=== PATIENT | female | born 1975 | race Caucasian/White ===

== ENCOUNTER 2020-05-26 11:35 | Outpatient (REF) | payer OTHER, SELFPAY ==
[2020-05-26 11:55] LABS: COVID-19 Test Negative (Negative)
== END 2020-05-26 11:36 | disposition home or self-care (01) ==
LOC: HO.LAB 11:35
PROVIDERS: Visit Provider Internal Medicine
DX: Z20.828 Contact with and (suspected) exposure to other viral communicable diseases (principal)
CPT/HCPCS: 87635

== ENCOUNTER 2020-07-07 08:24 | Outpatient (REF) | payer OTHER, SELFPAY ==
[2020-07-07 09:00] LABS: COVID-19 Test Negative (Negative); IDNOW Serial# 55D5AD1C
== END 2020-07-07 08:25 | disposition home or self-care (01) ==
LOC: HO.EMPCOV 08:24
PROVIDERS: Visit Provider Internal Medicine
DX: Z20.828 Contact with and (suspected) exposure to other viral communicable diseases (principal)
CPT/HCPCS: 87635; C9803

== ENCOUNTER 2020-07-12 08:44 | Outpatient (REF) | payer OTHER, SELFPAY ==
[2020-07-12 09:38] LABS: COVID-19 Test Negative (Negative); IDNOW Serial# 9DD0AD1C
== END 2020-07-12 08:45 | disposition home or self-care (01) ==
LOC: HO.EMPCOV 08:44
PROVIDERS: Visit Provider Internal Medicine
DX: Z20.828 Contact with and (suspected) exposure to other viral communicable diseases (principal)
CPT/HCPCS: 87635; C9803

== ENCOUNTER 2020-09-10 09:15 | Outpatient (REF) | payer OTHER, SELFPAY ==
[2020-09-10 10:51] LABS: Cholesterol 143 mg/dL
== END 2020-09-10 09:16 | disposition home or self-care (01) ==
LOC: HO.LNC 09:15
PROVIDERS: Visit Provider Pathology Anatomic Pathology & Clinical Pathology
DX: Z13.89 Encounter for screening for other disorder (principal)
CPT/HCPCS: 36415; 82465

== ENCOUNTER 2020-11-16 08:58 | Outpatient (REF) | payer OTHER, SELFPAY ==
--- NOTE | ~2020-11-16 | MM_ITS ---
EXAMINATION: MM SCREENING DIGITAL BREAST TOMOSYNTHESIS, BILATERAL CLINICAL INFORMATION: Screening. Asymptomatic. The lifetime risk of breast cancer based on the Tyrer-Cuzick Model is 7%. COMPARISON: Mammography: 09/02/2019, 08/27/2018, 07/31/2017 TECHNIQUE: Digital breast tomosynthesis is performed in both the craniocaudal and mediolateral oblique views along with computer-aided detection (CAD). Synthesized 2D images are generated from the tomosynthesis. FINDINGS: The breasts are heterogeneously dense, which may obscure small masses (ACR BI-RADS breast composition Category c). Parenchymal pattern is similar to prior exams. There is no developing density or interval mass or architectural abnormality. The axilla and skin contours are unremarkable. Again, there are scattered bilateral isolated and grouped round calcifications in each breast. No significant changes. MM/MM tomosynthesis screening BI IMPRESSION: No mammographic evidence of malignancy. ASSESSMENT: BI-RADS 2: Benign RECOMMENDATION: Routine annual mammography screening. This patient's information was entered into a reminder system with a target due date for their next mammogram.
== END 2020-11-16 08:59 | disposition home or self-care (01) ==
LOC: HO.MAMMO 08:58
PROVIDERS: Visit Provider Physician Assistant
DX: Z12.31 Encounter for screening mammogram for malignant neoplasm of breast (principal)
CPT/HCPCS: 77063; 77067

== ENCOUNTER 2020-12-06 10:59 | Outpatient (REF) | payer OTHER, SELFPAY ==
[2020-12-06 11:51] LABS: COVID-19 Test Negative (Negative); IDNOW Serial# 55D5AD1C
== END 2020-12-06 11:00 | disposition home or self-care (01) ==
LOC: HO.EMPCOV 10:59
PROVIDERS: Visit Provider Internal Medicine
DX: Z20.822 Contact with and (suspected) exposure to COVID-19 (principal)
CPT/HCPCS: 36415; 87635; C9803

== ENCOUNTER 2021-05-25 12:04 | Outpatient (REF) | payer OTHER, SELFPAY ==
--- NOTE | ~2021-05-25 | US_ITS ---
EXAMINATION: US PELVIS CLINICAL INFORMATION: Pelvic pain COMPARISON: Previous pelvic ultrasound most recent July 2016 TECHNIQUE: Ultrasound of the pelvis is performed using both transabdominal and transvaginal transducers along with Doppler. Transvaginal imaging is performed due to inadequate visualization transabdominally. FINDINGS: The uterus has been removed. The right ovary measures 2.9 x 2.2 x 2 cm. There is a 1.6 cm complex right ovarian cyst with slightly thickened irregular wall likely representing a resolving physiologic cyst. Arterial and venous flow is documented to the right ovary. Left ovary is normal-appearing and measures 1.7 x 1.7 x 1.3 cm. There is no fluid in the pelvis. US/US pelvic and transvaginal IMPRESSION: Post hysterectomy. Small complex right ovarian cyst probably representing a physiologic cyst.
[2021-05-25 13:53] LABS: MANUAL DIFF FLAG NO
[2021-05-25 14:01] LABS: Basophils Percent Auto 0.2 % (0-2); Eosinophils Absolute Auto 0.2 X10*3/uL (0.0-0.4); Eosinophils Percent Auto 1.4 % (0-4); Imm Gran Abs Auto 0.03 X10*3/uL (0.00-0.03); Imm Gran Pct Auto 0.3 % (0.0-0.4); Lymphocytes Absolute Auto 3.6 X10*3/uL (1.2-4.9); Lymphocytes Percent Auto 31.4 % (20-40); Mean Corpuscular HGB Conc 34.1 g/dl (31.0-35.0); Mean Corpuscular Volume 87.8 fL (80-98); Mean Platelet Volume 9.1 fL (9.4-12.3); Monocytes Absolute Auto 0.6 X10*3/uL (0.1-1.2); Monocytes Percent Auto 5.3 % (2-11); Neutrophils Absolute Auto 7.1 X10*3/uL (2.0-8.3); Neutrophils Percent Auto 61.4 % (45-73); Platelet Count 284 X10*3/uL (160-400); Red Blood Count 4.67 X10*6/uL (4.20-5.50); Red Cell Distribution Width 12.3 % (11.0-16.0); White Blood Count 11.5 X10*3/uL (4.8-10.8)
[2021-05-25 14:38] LABS: Alanine Aminotransferase 11 U/L (0-31); Albumin Level 4.5 g/dL (3.5-5.0); Alkaline Phosphatase 111 U/L (39-117); Anion Gap 13 (12-20); Aspartate Amino Transferase 11 U/L (5-31); Bilirubin Total 0.3 mg/dL (0.0-1.0); Blood Urea Nitrogen 11 mg/dL (9-16); C Reactive Protein 1.44 mg/dL (< or = 0.50); Calcium 9.9 mg/dL (8.4-10.2); Carbon Dioxide 23 mmol/L (22-29); Chloride 105 mmol/L (96-108); Estimated Glomerular Filt Rate > 60; Glucose Random 117 mg/dL (60-115); Potassium 4.4 mmol/L (3.3-5.1); Sodium 137 mmol/L (135-145); Total Protein 7.3 g/dL (6.5-8.0)
[2021-05-25 14:47] LABS: Appearance Urine HAZY; Color Urine YELLOW; Glucose Urine UA NEG (NEG); Leukocyte Esterase Urine NEG (NEG); Nitrite Urine NEG (NEG); Specific Gravity - Urine 1.025 (1.005-1.025); UACC Culture Trigger NO; Urine Blood TRACE (NEG); Urine Ketones NEG (NEG); Urine Protein NEG (NEG-TRACE)
[2021-05-25 15:11] LABS: RBC Urine 0-2 /HPF (0); WBC Urine 0 /HPF (0-4)
[2021-05-25 15:12] LABS: Squamous Epithelial Cell Urine 1+ /LPF
[2021-05-25 15:14] LABS: Bacteria Urine TRACE /LPF; Mucus Urine TRACE /LPF
== END 2021-05-25 12:05 | disposition home or self-care (01) ==
LOC: HO.US 12:04
PROVIDERS: Visit Provider Internal Medicine
DX: R10.9 Unspecified abdominal pain (principal)
CPT/HCPCS: 36415; 76830; 76856; 80053; 81001; 85025; 86140

== ENCOUNTER 2021-07-13 13:19 | Outpatient (REF) | payer OTHER, SELFPAY ==
[2021-07-13 15:08] LABS: Influenza A PCR NEGATIVE (Negative); Influenza B PCR NEGATIVE (Negative); Resp Syncy Virus RNA Qual PCR NEGATIVE (Negative); SARS COV2 PCR INHOUSE NEGATIVE (Negative)
== END 2021-07-13 13:20 | disposition home or self-care (01) ==
LOC: HO.LAB 13:19
PROVIDERS: Visit Provider Physician Assistant
DX: Z20.822 Contact with and (suspected) exposure to COVID-19 (principal)
CPT/HCPCS: 0241U; 36415

== ENCOUNTER 2021-11-21 15:15 | Outpatient (REF) | payer OTHER, SELFPAY ==
--- NOTE | ~2021-11-21 | MM_ITS ---
EXAMINATION: MM SCREENING DIGITAL BREAST TOMOSYNTHESIS, BILATERAL CLINICAL INFORMATION: Screening. Asymptomatic. The lifetime risk of breast cancer based on the Tyrer-Cuzick Model is 5%. COMPARISON: Mammography: 11/16/2020, 09/02/2019, 08/27/2018 TECHNIQUE: Digital breast tomosynthesis is performed in both the craniocaudal and mediolateral oblique views along with computer-aided detection (CAD). Synthesized 2D images are generated from the tomosynthesis. FINDINGS: The breasts are heterogeneously dense, which may obscure small masses (ACR BI-RADS breast composition Category c). Parenchymal distribution is similar to prior studies and there is no developing density or interval mass or architectural abnormality. The axilla and skin contours are unremarkable. There are scattered bilateral punctate calcifications again seen. Left breast calcifications are without significant change. The right breast has focal grouped calcifications 5:00 position 8 cm from nipple which are more conspicuous, possibly increased in number. Some of these appear are coarse. Patient will be recalled for additional imaging to further characterize with magnification views. MM/MM tomosynthesis screening BI IMPRESSION: Right: Grouped calcifications mid 5:00 position possibly increased. Left: No significant changes from prior study. ASSESSMENT: BI-RADS 0: Incomplete - Need Additional Imaging Evaluation RECOMMENDATION: 1. Additional views of the right breast (magnification CC, magnification LM). 2. Radiology department staff will contact the patient for additional imaging. This patient's information was entered into a reminder system with a target due date for their next mammogram.
== END 2021-11-21 15:16 | disposition home or self-care (01) ==
LOC: HO.MAMMO 15:15
PROVIDERS: Visit Provider Internal Medicine
DX: Z12.31 Encounter for screening mammogram for malignant neoplasm of breast (principal)
CPT/HCPCS: 77063; 77067

== ENCOUNTER 2021-11-25 10:18 | Outpatient (REF) | payer OTHER, SELFPAY ==
--- NOTE | ~2021-11-25 | MM_ITS ---
EXAMINATION: MM DIAGNOSTIC DIGITAL MAMMOGRAPHY, RIGHT CLINICAL INFORMATION: Recall from screening for focal grouped calcifications 5:00 position more conspicuous. Prior history reduction mammoplasty, 2009. COMPARISON: Mammography: 11/21/2021, 11/16/2020, 09/02/2019, 08/27/2018 (diagnostic, BI-RADS 2). TECHNIQUE: Digital mammography is performed in the following views: Magnification CC, magnification ML x2. FINDINGS: The breasts are heterogeneously dense, which may obscure small masses (ACR BI-RADS breast composition Category c). The additional magnification views show the grouped calcifications mid 5:00 position, increased in number from magnification views 08/27/2018. The calcifications are relatively coarse and circumferential arrangement. There are other smaller grouped calcifications of similar morphology in the right breast. These are probably benign and possibly sequela from the prior reduction mammoplasty. Management plan is for short interval follow-up diagnostic right mammography in 6 months. Results are discussed with the patient at time of visit. MM/MM added views RT IMPRESSION: Probable benign calcifications mid 5:00 position similar in morphology to other smaller groups right breast, possibly sequela from prior reduction mammoplasty. ASSESSMENT: BI-RADS 3: Probably Benign RECOMMENDATION: Diagnostic right mammography in 6 months. This patient's information was entered into a reminder system with a target due date for their next mammogram.
== END 2021-11-25 10:19 | disposition home or self-care (01) ==
LOC: HO.MAMMO 10:18
PROVIDERS: Visit Provider Internal Medicine
DX: R92.1 Mammographic calcification found on diagnostic imaging of breast (principal)
CPT/HCPCS: 77065

== ENCOUNTER 2022-05-30 14:17 | Outpatient (REF) | payer OTHER, SELFPAY ==
--- NOTE | ~2022-05-30 | MM_ITS ---
EXAMINATION: MM DIAGNOSTIC DIGITAL BREAST TOMOSYNTHESIS, RIGHT CLINICAL INFORMATION: Short interval six-month follow-up probable benign calcifications 5:00 right breast, suspect sequela from remote reduction mammoplasty. TC score 5%. COMPARISON: Mammography: 11/25/2021, 11/21/2021 (BI-RADS 0), 11/16/2020, 09/02/2019, 08/27/2018 TECHNIQUE: Digital breast tomosynthesis is performed in both the craniocaudal and mediolateral oblique views along with computer-aided detection (CAD). Synthesized 2D images are generated from the tomosynthesis. Additional magnification right CC and magnification right ML views are obtained. FINDINGS: The breasts are heterogeneously dense, which may obscure small masses (ACR BI-RADS breast composition Category c). Parenchymal pattern is similar to prior exams and there is no interval mass or developing density or architectural abnormality. There are numerous old calcifications throughout the right breast, the group for follow-up have similar characteristics and likely related to the reduction mammoplasty. No increasing calcifications from prior diagnostic exam. Calcifications will be reassessed again at time of annual bilateral mammography, due in 6 months. Results are provided to the patient at time of visit by the technologist. MM/MM tomosynthesis diagnostic RT IMPRESSION: Right breast calcifications for follow-up are stable, similar to other calcifications in the right breast. ASSESSMENT: BI-RADS 3: Probably Benign RECOMMENDATION: Diagnostic mammography at time of annual bilateral exam, due in 6 months. This patient's information was entered into a reminder system with a target due date for their next mammogram.
== END 2022-05-30 14:18 | disposition home or self-care (01) ==
LOC: HO.MAMMO 14:17
PROVIDERS: Visit Provider Internal Medicine
DX: R92.1 Mammographic calcification found on diagnostic imaging of breast (principal)
CPT/HCPCS: 77061; 77065

== ENCOUNTER 2022-11-07 07:31 | Outpatient (REF) | payer OTHER, SELFPAY ==
[2022-11-10 06:34] LABS: TS Negative Control Passed; TS Panel A 1; TS Panel B 0; TS Positive Control Passed; TSpotTB Negative (Negative)
== END 2022-11-07 07:32 | disposition home or self-care (01) ==
LOC: HO.LAB 07:31
PROVIDERS: Visit Provider Emergency Medicine
DX: A15.9 Respiratory tuberculosis unspecified (principal)
CPT/HCPCS: 36415; 86481

== ENCOUNTER 2022-11-30 12:36 | Outpatient (REF) | payer OTHER, SELFPAY ==
--- NOTE | ~2022-11-30 | MM_ITS ---
EXAMINATION: MM DIAGNOSTIC DIGITAL BREAST TOMOSYNTHESIS, BILATERAL CLINICAL INFORMATION: Six-month follow up right breast calcifications. Yearly screening left breast study. COMPARISON: Mammography: 05/30/2022 and studies dating back to 07/25/2016. TECHNIQUE: Digital breast tomosynthesis is performed in both the craniocaudal and mediolateral oblique views along with computer-aided detection (CAD). Synthesized 2D images are generated from the tomosynthesis. Additional spot magnification views of the right breast in craniocaudal and 90-degree mediolateral views performed. FINDINGS: The breasts are extremely dense, which lowers the sensitivity of mammography (ACR BI-RADS breast composition category D). There are no new significant masses, abnormal calcifications, or other abnormalities. There is essentially stability of grouped and scattered calcifications throughout both breasts including the one being followed about the inferior medial aspect of the right breast. One year followup bilateral mammography with right breast magnification views at that time recommended. Results are provided to the patient at time of visit by the technologist. MM/MM tomosynthesis diagnostic BI IMPRESSION: There are no significant changes from prior study. ASSESSMENT: BI-RADS 3: Probably benign. RECOMMENDATION: Diagnostic mammography at time of next annual exam, due in 12 months. This patient's information was entered into a reminder system with a target due date for their next mammogram.
== END 2022-11-30 12:37 | disposition home or self-care (01) ==
LOC: HO.MAMMO 12:36
PROVIDERS: PCP Internal Medicine; Visit Provider Internal Medicine
DX: R92.1 Mammographic calcification found on diagnostic imaging of breast (principal)
CPT/HCPCS: 77062; 77066

== ENCOUNTER 2022-12-20 09:09 | Outpatient (REF) | payer OTHER, SELFPAY ==
--- NOTE | ~2022-12-20 | FL_ITS ---
PROCEDURE: FL BARIUM SWALLOW CLINICAL INFORMATION: Dysphagia. COMPARISON: None available. TECHNIQUE: Barium swallow examination is performed using fluoroscopic evaluation in addition to multiple fluoroscopic spot views. The patient is imaged both upright and prone and using both thick and thin sulfate along with effervescent granules. Fluoroscopy time: 2.3 minutes DAP: 16.422 Gy-cm2 Images: 53 FINDINGS: Following oral administration of thick barium and barium-coated turkey and barium tablet there is normal propagation of bolus from the oral cavity through the pharynx, esophagus into stomach without any evidence of obstruction, narrowing. No laryngeal penetration or aspiration seen. There are degenerative disc changes at C5-C6 and C6-C7 disc levels with moderate ventral spondylosis at the C6-C7 disc level indenting the posterior esophageal pharyngeal wall but no obstruction seen. On placing patient prone and oral administration of thin barium there is good distention of the esophagus without any filling defect. There is a small sliding hiatal hernia. FL/FL barium swallow IMPRESSION: Indentation of posterior cervical esophageal wall from ventral spondylosis C6-C7 disc level but no obstruction. Small sliding hiatal hernia.
== END 2022-12-20 09:10 | disposition home or self-care (01) ==
LOC: HO.XRAY 09:09
PROVIDERS: PCP Internal Medicine; Visit Provider Internal Medicine Gastroenterology
DX: R13.10 Dysphagia, unspecified (principal)
CPT/HCPCS: 74220

== ENCOUNTER → 2023-03-09 10:12 | Outpatient (BNVA) | payer SELFPAY | PROVIDERS: PCP Internal Medicine | DX: Z04.9 Encounter for examination and observation for unspecified reason (principal) ==

== ENCOUNTER 2023-07-16 09:01 | Outpatient (AMB) | payer OTHER, SELFPAY ==
--- NOTE | 2023-07-16 09:02 | A.OFFVIS_ITS ---
Intake Intake Visit Reasons: f/u BA Swallow Intake Note: Isabel presents as a video call. CC: She states that she had a BA swallow, she feels like she is going to choke and it happens with meats in general - big steak! She states her gall bladder is there but it does not work. If she does not have a BM it is an issue. Life Skills Consultant Required: No Allergies No Known Allergies Allergy (Verified 07/16/23 09:03) HPI f/u BA Swallow HPI Details 47 yr old patient being called for asses sment for dysphagia and choking Has issues with choking and dysphagia for years can happen with thick meats, steak, has occ heartburn she says her GB does not work and she has diarrhea she denies melena or diarrhea her weight is stable she never had egd or colonoscopy Ba swallow: Indentation of posterior cervical esophageal wall from ventral spondylosis C6-C7 disc level but no obstruction. Small sliding hiatal hernia. PMH: goiter PSH: breast reduction, hysterectomy, tubal SH: smoker, no alcohol, no recreational drugs FH: father has colon issues, just ROS Constitutional : No Weight loss, No Fever, No Chills ENT/Mouth : No sore throat, No Rhinorrhea Eyes: No Swelling, No Redness Cardiovascular : No Chest Pain, No SOB, No Edema Respiratory : No Cough, No Sputum, No Wheezing Gastrointestinal : see HPI Genitourinary : NO Dysuria, No Urinary Frequency, No Hematuria, No Urgency Musculoskeletal : No joint pain, No Myalgias, No Joint Swelling Skin : No Skin Lesions, No rash Neuro : No Weakness, No Numbness, No Dizziness, No Headache Psych : No Anxiety/Panic, No Depression Heme/Lymph: No Bruising, No Lymphadenopathy Endocrine : No Polyuria, No Polydipsia All other systems reviewed and are negative. EXAM: GENERAL: The patient is well developed and nontoxic. A/P: 1/ Choking, dysphagia to meats ddx: eoe. shcatzki ring, GERD related, dysmotility 2/ diarrhea, maybe realted to 1/, gastri tis, infectious (works in health care), colitis Plan: 1/ EGD and colo for further assessment, riaz and janna sent [facility] Medical History (Updated 07/16/23 @ 09:30 by Salas Mota MD) Esophageal stricture GERD (gastroesophageal reflux disease) Surgical History (Updated 10/19/22 @ 14:54 by Funmilayo Patel RN) Hx of tubal ligation H/O bilateral breast reduction surgery History of hysterectomy Social History Are you a primary primary care sales representative to a significant other at home: No Do you presently have visiting nurse or other home services: No Patient Tobacco Use Status: Current everyday Tobacco user Tobacco use type: Cigarette Cigarettes Per Day: 4 Assessment & Plan Assessment & Plan (1) Choking due to food (regurgitated): Code(s): T17.320A - Food in larynx causing asphyxiation, initial encounter; W44.F3XA - Food entering into or through a natural orifice, initial encounter Plan: A/P: 1/ Choking, dysphagia to meats ddx: eoe. shcatzki ring, GERD related, dysmotility 2/ diarrhea, maybe realted to 1/, gastritis, infectious (works in health care), colitis Plan: 1/ EGD and colo for further assessment, suprep and zofran sent (2) Diarrhea: Code(s): R19.7 - Diarrhea, unspecified Plan: A/P: 1/ Choking, dysphagia to meats ddx: eoe. shcatzki ring, GERD related, dysmotility 2/ diarrhea, maybe realted to 1/, gastritis, infectious (works in health care), colitis Plan: 1/ EGD and colo for further assessment, suprep and zofran sent Medications: New sodium,potassium,mag sulfates 17.5-3.13-1.6 gram (Suprep Bowel Prep Kit) DILUTE; drink 1/2 at 6-8 pm and half at 11 PM- 1AM 354 mL 0RF ondansetron can take with colon prep for colonoscopy 4 mg PO Q8H PRN 7 tabs 0RF nausea and vomiting Telehealth Telehealth Location of provider rendering services: practice address Location of patient: address on file Patient Identification confirmed using: Name, : Yes Telehealth method: video Patient verbally consented to treatment: Yes Patient verbally consented to billing insurance company: Yes Patient informed of any privacy concerns related to visit: Yes Minutes spent on Phone/Video with Pt.: 11 Coding Level of Care Code Tele New Pt Level 4 (53661) Diagnoses Choking due to food (regurgitated) T17.320A; W44.F3XA Diarrhea R19.7
== END 2023-07-16 09:42 | disposition home or self-care (01) ==
LOC: HO.HGI 09:01
PROVIDERS: PCP Internal Medicine; Visit Provider Internal Medicine Gastroenterology
DX: T17.320A Food in larynx causing asphyxiation, initial encounter (principal); W44.F3XA Food entering into or through a natural orifice, initial encounter; R19.7 Diarrhea, unspecified
CPT/HCPCS: 99204

== ENCOUNTER → 2023-07-16 09:01 | Outpatient (BNVA) | payer OTHER, SELFPAY | PROVIDERS: PCP Internal Medicine; Visit Provider Internal Medicine Gastroenterology ==

== ENCOUNTER 2023-08-16 09:05 | Day surgery (SDC) | payer OTHER, SELFPAY ==
--- NOTE | 2023-08-15 11:52 | P.CONAN_ITS ---
HPI - Anesthesia Eval Consult details Narrative: 47yo F for Upper Endoscopy and Colonoscopy PMFSH Active Problems Active Problems: All Active Problems (Updated 07/16/23 @ 09:30 by Salas Mota MD) Diarrhea (Acute) Choking due to food (regurgitated) (Acute) Past Medical History Medical History (Updated 07/16/23 @ 09:30 by Salas Mota MD) Esophageal stricture GERD (gastroesophageal reflux disease) Surgical History Surgical History (Updated 10/19/22 @ 14:54 by Funmilayo Patel RN) Hx of tubal ligation H/O bilateral breast reduction surgery History of hysterectomy Social History Social History Are you a primary intensive care unit registered nurse to a significant other at home: No Do you presently have visiting nurse or other home services: No Patient Tobacco Use Status: Current everyday Tobacco user Tobacco use type: Cigarette Cigarettes Per Day: 4 Meds Allergies Allergy/AdvReac Type Severity Reaction Status Date / Time No Known Allergies Allergy Verified 07/16/23 09:03 Home Medications Medication Instructions Recorded Confirmed Last Taken Type Protonix 40 PO DAILY PRN Acid Reflux 10/19/22 10/19/22 08/16/22 History cholecalciferol (vitamin D3) 50 50 mcg PO DAILY 07/16/23 08/01/23 History mcg (2,000 unit) tablet (Vitamin D3) omega-3 acid ethyl esters 1 gram 2 cap PO BID 07/16/23 08/01/23 History capsule Assessment and Plan Assessment Anesthesia Assessment: Chart Reviewed
[2023-08-16 09:21] VITALS: BMI 30.7
[2023-08-16 09:26] VITALS: BP 128/91; PULSE 87; RESP 18; TEMP 36.6; O2SAT 97
--- NOTE | 2023-08-16 09:51 | HO.ANESPROP2 ---
[facility] Active Problems Active Problems: All Active Problems (Updated 07/16/23 @ 09:30 by Salas Mota MD) Diarrhea (Acute) Choking due to food (regurgitated) (Acute) Past Medical History Medical History (Updated 07/16/23 @ 09:30 by Salas Mota MD) Esophageal stricture GERD (gastroesophageal reflux disease) Family History Family history of problems with anesthesia: No Surgical History Surgical History (Updated 10/19/22 @ 14:54 by Funmilayo Patel RN) Hx of tubal ligation H/O bilateral breast reduction surgery History of hysterectomy History of Problems with Anesthesia: No Social History Social History Are you a primary personal care service provider to a significant other at home: No Do you presently have visiting nurse or other home services: No Patient Tobacco Use Status: Current everyday Tobacco user Tobacco use type: Cigarette Cigarettes Per Day: 4 Are you DNR?: No Advance Directives: No Advance Directives Information Provided: Yes Nutrition Risks: No Nutritional Risk Patient : No Meds Allergies Allergy/AdvReac Type Severity Reaction Status Date / Time No Known Allergies Allergy Verified 07/16/23 09:03 Active Medications: Current Medications Lactated Ringer's (Lr) 1,000 mls @ 100 mls/hr IVCONT .Q10H TERESA Last Admin: 08/16/23 09:35 Dose: 100 mls/hr Ondansetron HCl (Ondansetron Hcl 4 Mg/2 Ml Vial) 4 mg IVPUSH ONCE PRN PRN Reason: Nausea and Vomiting Home Medications Medication Instructions Recorded Confirmed Last Taken Type Protonix 40 PO DAILY PRN Acid Reflux 10/19/22 10/19/22 08/16/22 History cholecalciferol (vitamin D3) 50 50 mcg PO DAILY 07/16/23 08/01/23 History mcg (2,000 unit) tablet (Vitamin D3) omega-3 acid ethyl esters 1 gram 2 cap PO BID 07/16/23 08/01/23 History capsule Exam Height,Weight and Vital Signs: Height 5 ft 6 in Weight 86.183 kg Last Vital Signs Temp 97.9 F 08/16/23 09:26 Pulse 87 08/16/23 09:26 Resp 18 08/16/23 09:26 BP 128/91 H 08/16/23 09:26 Pulse Ox 97 08/16/23 09:26 O2 Del Method Room Air 08/16/23 09:26 Airway Mallampati Class: I TM Dist: >3cm Neck ROM: Full Loose/Missing/Broken Teeth: No Heart: rrr Lungs: clear Assessment and Plan Final Anesthetic Review Family History of Problems with Anesthesia: No History of Problems with Anesthesia: No NPO: Yes ASA Class: II Final Preanesthetic Review: No Changes in Pt Med Stat, Meds/Allgs Chart Reviewed, Consent Obtained/Reviewed and Anes Risks/Benef Reviewed Procedure Risk: Low Anesthetic Plan Anesthetic Plan: MAC: Disposition: Standard PACU
--- NOTE | 2023-08-16 10:07 | MHC.SHP ---
Pre-Procedural Eval Section A Date of Service: 08/16/23 Section B Chief Complaint: Food entering into or through a natural orifice Details of Present Illness: dysphagia and colon screening Relevant Family History (Specify if Yes): No Relevant Social History: Tobacco Use Present Medications: see Short Stay Collaborative assessment Medical History: Significant History (Esophageal stricture GERD (gastroesophageal reflux disease)) History of Previous Operations: Relevant previous surgery/procedure and date(s) ( Hx of tubal ligation H/O bilateral breast reduction surgery History of hysterectomy) Allergies: Allergies Allergy/AdvReac Type Severity Reaction Status Date / Time No Known Allergies Allergy Verified 07/16/23 09:03 Review of Systems Sugical H&P ROS: Negative: Constitution, Cardiovascular, Respiratory, Neurological, Psychiatric, Hem-Onc, Allergic/Immunologic, Gastrointestinal, Genitourinary, Musculoskeletal, Integumentary, Endocrine and Eyes/Ears/Nose/Throat Exam Surgical H&P Exam: Normal: HEENT, Normal: Heart, Normal: Lungs, Normal: Extremities, Normal: Abdomen, Normal: Skin and Normal: Neurological Plan Diagnosis/Plan: Unchanged I have reviewed the history and physical and performed a pertinent physical examination on my patient. No changes have occurred unless specified. Time Spent With Patient Time: Total time managing care of this patient today ____ minutes.
--- NOTE | 2023-08-16 10:15 | W.PM.OPN ---
Operative Note Operative Note Date of Service: 08/16/23 Narrative: Operative Information Procedure Description: EGD, Colonoscopy Indication: dysphagia, abn bowel habit Anesthesia: MAC FLEXIBLE TRANSORAL UPPER GASTROINTESTINAL ENDOSCOPY AND COLONOSCOPY PROCEDURE NOTE UPPER ENDOSCOPY Consent: Indications for the procedure and potential complications of bleeding, perforation, reaction to medications and missed diagnosis were discussed with the patient and informed consent was obtained. Instrument: Olympus GIF H 190 J mid size upper endoscope Monitoring: Vital signs and clinical assessment, continuous EKG monitoring, Pulse oximetry, Carbon Dioxide monitoring and blood pressure monitoring were done throughout the procedure. Procedure: The patient was placed in the left lateral decubitis position and pre-procedure medications were administered and a bite block was placed. The endoscope was inserted into the mouth and advanced under direct vision to the third part of duodenum. A careful inspection was made as the upper endoscope was withdrawn including a retroflexed examination of the proximal stomach; Findings and interventions are described below. Findings: Larynx:normal Esophagus: GE junction at 33 cm, diaphragm hiatus at 35 cm, consistent with 2 cm sliding hiatal hernia, LA grade A erosive esophagitis note,d bx taken from GEJ, distal and proximal esophagus, balloon dilation done at lower esophagus and UES to 19 mm, no tears seen Stomach: Normal mucosa. Biopsies were obtained. Grade 2 flap valve on retroflexed examination of the cardia. Duodenum: Bulbar duodenitis with swollen patches and few erosions, bx taken Intervention: Biopsies as noted above COLONOSCOPY Instrument: Olympus variable stiffness pediatric scope 190L Colonoscopy Monitoring: Vital signs and clinical assessment, continuous EKG monitoring, Pulse oximetry, Carbon Dioxide monitoring and blood pressure monitoring were done throughout the procedure. Colon withdrawal time was 13 minutes. Procedure: The patient was placed in the left lateral decubitis position and pre-procedure medications were administered. After a digital rectal examination of the ano-rectum, the video colonoscope was inserted into the rectum and advanced through the colon to the cecum/TI. The colonoscope was slowly withdrawn in a retrograde panoramic fashion and the colon mucosa was carefully examined including a retroflexed view of the rectum. Findings and interventions are described below. Procedure Difficulty: Findings: Terminal Ileum-normal, bx taken Right sided colon bx taken Cecum:normal Ascending Colon: 10-12 mm sessile polyp removed with cold snare--few diverticula seen Transverse Colon -normal Descending Colon:normal Sigmoid Colon: moderate diverticulosis with segement of distal sigmoid with erythema and swelling--bx taken Rectum: Retroflexion with small internal hemorrhoids, grade I Anorectum - normal Colon preparation: [place] Bowel Preparation Scale Right colon; 2 Transverse colon: 2 Left colon; 3 (0 = Unprepared colon segment with mucosa not seen due to solid stool that cannot be cleared. 1 = Portion of mucosa of the colon segment seen, but other areas of the colon segment not well seen due to staining, residual stool and/or opaque liquid. 2 = Minor amount of residual staining, small fragments of stool and/or opaque liquid, but mucosa of colon segment seen well. 3 = Entire mucosa of colon segment seen well with no residual staining, small fragments of stool or opaque liquid) Impression and Post Procedure Diagnosis: Endoscopy Findings: hiatal hernia duodenitis erosive esophagitis Colonoscopy Findings: polyp internal hemorrhoids diverticular disease SCAD Plan: Await Pathology results Repeat Colonoscopy in 5 years due to polyp or earlier if clinically indicated High fiber diet leaflet avoid straining at stool, epsom salts and sitz bath, anusol supps or cream if concern for IBD will get CTe 1 week of cipro and flagyl, PPi compliance, avoid nsaids, GERd precautions Above findings were reviewed with the patient and relevant handouts were provided if indicated.
[2023-08-16 11:00] VITALS: BP 129/64; PULSE 86; RESP 18; TEMP 36.4; O2SAT 98
[2023-08-16 11:15] VITALS: BP 126/77; PULSE 74; RESP 16; TEMP 36.6; O2SAT 98
[2023-08-22 20:12] LABS: Lactoferrin, Fecal, Quant. <6.25 mcg/mL (<7.25)
== END 2023-08-16 11:54 | disposition home or self-care (01) ==
PROVIDERS: PCP Internal Medicine; Visit Provider Internal Medicine Gastroenterology
PROC: (CPT 45385; principal; 2023-08-16 11:40)
DX: R19.4 Change in bowel habit (principal); R19.7 Diarrhea, unspecified; D12.2 Benign neoplasm of ascending colon; K57.30 Diverticulosis of large intestine without perforation or abscess without bleeding; K64.0 First degree hemorrhoids; E71.312 Short chain acyl CoA dehydrogenase deficiency; R13.10 Dysphagia, unspecified; T17.320A Food in larynx causing asphyxiation, initial encounter; W44.F3XA Food entering into or through a natural orifice, initial encounter; K29.80 Duodenitis without bleeding; K29.50 Unspecified chronic gastritis without bleeding; B96.81 Helicobacter pylori [H. pylori] as the cause of diseases classified elsewhere; K20.80 Other esophagitis without bleeding; K44.9 Diaphragmatic hernia without obstruction or gangrene
CPT/HCPCS: 45385; 45380; 43249; 43239; 83631; 87493; 87507; 88305; 88342; C1726; J2704

== ENCOUNTER → 2023-08-16 09:05 | Outpatient (BNV) | payer OTHER, SELFPAY | PROVIDERS: PCP Internal Medicine; Visit Provider Internal Medicine Gastroenterology | DX: R19.4 Change in bowel habit (principal); K63.5 Polyp of colon; K57.90 Diverticulosis of intestine, part unspecified, without perforation or abscess without bleeding; K64.0 First degree hemorrhoids; R13.10 Dysphagia, unspecified; K29.80 Duodenitis without bleeding; K20.90 Esophagitis, unspecified without bleeding | CPT/HCPCS: 43239; 43249; 45380; 45385 ==

== ENCOUNTER 2023-11-30 00:04 | Inpatient (IN) | payer OTHER, SELFPAY ==
[2023-11-30] VITALS (9 sets, daily range): BP systolic 109–138; BP diastolic 52–88; PULSE 73–108; RESP 15–20; TEMP 36.4–36.8; O2SAT 96–99; BMI 30.3; BMI 31.3
--- NOTE | ~2023-11-30 | CT_ITS ---
EXAMINATION: CT ABDOMEN AND PELVIS WITH CONTRAST CLINICAL INFORMATION: Lower abdominal pain COMPARISON: None available. TECHNIQUE: Multidetector volumetric images were obtained from the superior aspect of the liver through the pubic symphysis following administration 85 mL of Omnipaque 350 intravenous contrast. Sagittal and coronal reformatted images were obtained on the technologist's workstation. Oral contrast: No This CT examination was performed using dose optimization techniques as appropriate, variously including the following: *Automated exposure control *Adjustment of mA and/or kV according to patient size (this includes techniques or standardized protocols for targeted exams where dose is matched to indication/reason for exam; i.e. extremities or head) *Use of iterative reconstruction technique DLP: 804 mGy-cm FINDINGS: LUNG BASES: The visualized lung bases are unremarkable. LIVER, GALLBLADDER, AND BILIARY TREE: The liver is mildly enlarged, measuring approximately 18.6 cm in length. There is a mildly hypoattenuating right hepatic lobe lesion measuring up to 1.3 cm on image 29/99, nonspecific. No biliary ductal dilatation is present. Proximal gallstone is present on coronal image 34. The gallbladder is prominently distended, though without appreciable wall thickening or significant surrounding inflammation. PANCREAS: Unremarkable. SPLEEN: Unremarkable. ADRENAL GLANDS: Unremarkable. KIDNEYS AND URETERS: Bilateral nephrograms are symmetric. No hydronephrosis or obstructing calculus identified. BLADDER: Unremarkable. GASTROINTESTINAL TRACT: Small hiatal hernia. No evidence of bowel obstruction. There is a short segment of wall thickening in the proximal sigmoid colon in the setting of diverticula and surrounding stranding, most suspicious for acute diverticulitis. No associated pericolonic abscess. There is likely a couple tiny foci of adjacent free air superiorly, suspicious for sequelae of microperforation. The appendix is unremarkable. Trace pelvic free fluid, presumably reactive. ABDOMINAL WALL: There is suggestion of a cystic structure in the lateral left breast measuring up to 3.2 x 1.7 cm in the axial plane, only partially visualized on this exam. LYMPH NODES: Normal. VASCULAR: Unremarkable. PELVIC VISCERA: Status post hysterectomy. OSSEOUS STRUCTURES: Scattered mild degenerative changes in the spine. CT/CT abdomen pelvis w IV con IMPRESSION: 1. Diverticulitis of the proximal sigmoid colon. A couple tiny foci of adjacent free air are likely present, suspicious for sequelae of microperforation. No pericolonic abscess. Correlation with recent or followup colonoscopy is advised to exclude an underlying mass lesion. 2. Cholelithiasis with prominent gallbladder distention, though without appreciable wall thickening or surrounding inflammation. If there is clinical concern for cholecystitis, this would be better further assessed with ultrasound. 3. Mildly hypoattenuating right hepatic lobe lesion measuring up to 1.3 cm, nonspecific. If not already performed, assessment with nonemergent dynamic liver MRI is recommended. 4. Cystic structure in the lateral left breast measuring up to 3.2 cm, only partially visualized on this exam. Correlation with mammography/ultrasound is recommended. This critical result was discussed with Dr. Ballard on 11/30/2023 2:18 AM, and it was ascertained that the content and urgency of the report was understood at the time of direct communication.
--- NOTE | 2023-11-30 00:24 | ED_ITS ---
HPI - Abdominal Pain General Chief Complaint: Abdominal Pain Stated Complaint: lower abd pain Time Seen by Provider: 11/30/23 00:14 Source: patient Mode of arrival: ambulatory Limitations: no limitations History of Present Illness HPI narrative: patient with recent upper and lower endoscopy significant for evidence of reflux and gastritis, diverticulosis and colon polyps. patient with increasing lower abdominal pain over the past few days. MD elicited complaint: abdominal pain Onset (ago): day(s) Pain Consistency: constant Location: RLQ and LLQ Severity: moderate Related Data Home Medications ?Medication ?Instructions ?Recorded ?Confirmed Protonix 40 PO DAILY PRN Acid Reflux 10/19/22 10/19/22 cholecalciferol (vitamin D3) 50 50 mcg PO DAILY 07/16/23 mcg (2,000 unit) tablet (Vitamin D3) omega-3 acid ethyl esters 1 gram 2 cap PO BID 07/16/23 capsule Previous Rx's ?Medication ?Instructions ?Recorded ciprofloxacin HCl 500 mg tablet 500 mg PO BID #14 tabs 08/16/23 (Cipro) fluconazole 150 mg tablet 150 mg PO Q3D 2 doses #2 tabs 08/16/23 metronidazole 500 mg tablet 500 mg PO TID #21 tabs 08/16/23 pantoprazole 40 mg tablet,delayed 40 mg PO DAILY #60 tabs 08/16/23 release amoxicillin 500 mg tablet 1,000 mg (2 x 500 mg) PO Q12H 2 08/18/23 weeks #56 tabs levofloxacin 500 mg tablet 500 mg PO DAILY #14 tabs 08/18/23 pantoprazole 20 mg tablet,delayed 20 mg PO BID #28 tabs 08/18/23 release Allergies Allergy/AdvReac Type Severity Reaction Status Date / Time No Known Allergies Allergy Verified 11/30/23 00:08 Review of Systems Review of Systems Yes all other systems are reviewed and are negative Denies Sensory deficit (Neuro) FORMERLY [facility] Past Medical History Medical History Esophageal stricture GERD (gastroesophageal reflux disease) Surgical History Hx of tubal ligation H/O bilateral breast reduction surgery History of hysterectomy Social History Social History Are you a primary child care lead teacher to a significant other at home: No Do you presently have visiting nurse or other home services: No Patient Tobacco Use Status: Current everyday Tobacco user Tobacco use type: Cigarette Cigarettes Per Day: 4 Smoked in Last 30 Days: Yes Use of substances other than those prescribed or required for medical reasons: No Advance Directives: No Advance Directives Information Provided: Yes Patient : No Physical Exam ED Vital Signs: Vital Signs - 24 hr 11/30/23 00:07 Temperature 98 F Pulse Rate 108 H Respiratory Rate 20 Blood Pressure 138/88 Pulse Oximetry 99 Oxygen Delivery Method Room Air BMI result Body Mass Index 30.3 Const General: healthy appearing Nutritional Appearance: average body habitus Orientation/consciousness: oriented to person and patient oriented x3 Limitations: no limitations HENMT Head: Yes normal to inspection Ears: external ears normal General nose exam: Normal external nose present Mouth: Normal oral and palatal mucosa present and oropharynx normal Throat: Yes posterior oropharynx normal Eyes General: appearance normal, both eyes and all related structures Neck Neck: Yes normal visual inspection Chest Chest palpation & inspection: normal inspection of the chest Resp Auscultation: clear to auscultation bilaterally Cardio Jugular venous distension: no JVD Rate: regular rate Rhythm: regular rhythm Heart sounds: S1 normal heart sound present and S2 normal heart sound present GI Other: lower abdominal and suprapubic pain with tenderness to palpation General: Yes no CVA tenderness Back/Spine/Pelvis Back: no CVA tenderness Skin General skin exam: no rashes or lesions noted Neuro General: oriented to person and patient oriented x3 Cranial nerves: Yes CN's II-XII intact bilaterally Motor exam (neuro): 5/5 motor strength present throughout Sensory Exam: No Sensory deficit (Neuro) Extrem General: Yes normal to inspection Psych Appearance: grossly normal Course Reevaluation(s) Reevaluation #1: elevated WBC, CT scan shows diverticulitis with microperforation will admit Time: 03:30 Medical Decision Making Differential Diagnosis Differential Diagnoses: The differential diagnosis associated with the presentation includes (diverticulitis, uti, constipation, obstruction were all considered) Admission/Observation Consideration of admission/observation: Escalation of care including admission/observation considered (upon arrival patient considered for admission) Consult Healthcare Provider Management of the patient was discussed with: Hospitalist Lab Data 11/30/23 00:33 11/30/23 00:33 Labs: Lab Results 11/30/23 11/30/23 Range/Units 00:33 02:29 WBC 14.5 H (4.8-10.8) X10*3/uL RBC 4.62 (4.20-5.50) X10*6/uL Hgb 13.8 (12.0-16.0) g/dl Hct 39.9 (37.0-47.0) % MCV 86.4 (80.0-98.0) fL MCH 29.9 (27.0-33.0) pg MCHC 34.6 (31.0-35.0) g/dl RDW 12.5 (11.0-16.0) % Plt Count 243 (160-400) X10*3/uL MPV 9.2 L (9.4-12.3) fL Immature Gran % (Auto) 0.4 (0.0-0.4) % Neut % (Auto) 71.5 (45-73) % Lymph % (Auto) 20.1 (20-40) % [place] % (Auto) 7.2 (2-11) % Eos % (Auto) 0.6 (0-4) % Baso % (Auto) 0.2 (0-2) % Lymph # (Auto) 2.9 (1.2-4.9) X10*3/uL [place] # (Auto) 1.0 (0.1-1.2) X10*3/uL Eos # (Auto) 0.1 (0.0-0.4) X10*3/uL Baso # (Auto) 0.0 (0.0-0.2) X10*3/uL Abs Immat Gran (auto) 0.06 H (0.00-0.03) X10*3/uL Absolute Neuts (auto) 10.4 H (2.0-8.3) x10*3/uL Absolute Nucleated RBC 0.000 (0.0-0.012) X10*3/uL Nucleated RBC % (auto) 0.0 (0.0-0.2) /100WBC Sodium 138 (135-145) mmol/L Potassium 3.9 (3.3-5.1) mmol/L Chloride 107 (96-108) mmol/L Carbon Dioxide 24 (22-29) mmol/L Anion Gap 11 L (12-20) BUN 9 (9-16) mg/dL Creatinine 0.75 (0.5-1.4) mg/dL Estim Creat Clear Calc 104.2 Estimated GFR > 60 Random Glucose 121 H (60-115) mg/dL Calcium 9.5 (8.4-10.2) mg/dL Total Bilirubin 0.8 (0.0-1.0) mg/dL Direct Bilirubin 0.3 (0.0-0.5) mg/dL AST 10 (5-31) U/L ALT 10 (0-31) U/L Alkaline Phosphatase 85 (39-117) U/L Total Protein 7.4 (6.5-8.0) g/dL Albumin 4.0 (3.5-5.0) g/dL Lipase 20 (8-78) U/L Urine Color Yellow Urine Appearance Clear Urine pH 6.5 (5.0-9.0) Ur Specific [place] 1.020 (1.005-1.025) Urine Protein Negative (Neg-Trace) mg/dL Urine Glucose (UA) Negative (Negative) mg/dL Urine Ketones Negative (Negative) mg/dL Urine Blood Negative (Negative) Urine Nitrite Negative (Negative) Ur Leukocyte Esterase Negative (Negative) Radiology Impression Discussion of test interpretation with radiology: I discussed test interpretation with the radiologist (CT scan results were called into me) External Record Review External record reviewed: Outpatient record Medications Administered Discontinued Medications Generic Name Dose Route Start Last Admin Trade Name Freq PRN Reason Stop Dose Admin Levofloxacin 500 mg in 100 mls @ 100 mls/hr 11/30/23 02:20 11/30/23 02:24 Levaquin IV 11/30/23 03:19 100 mls/hr ONCE ONE Administration Metronidazole 500 mg in 100 mls @ 100 mls/hr 11/30/23 02:20 11/30/23 02:24 Flagyl IV 11/30/23 03:19 100 mls/hr ONCE ONE Administration Iohexol 85 ml 11/30/23 01:16 11/30/23 01:17 Iohexol 350 Mg/Ml 100 Ml Infus..Btl IV 11/30/23 01:17 85 ml ONCE ONE Administration Discharge Plan Discharge Clinical Impression: Diverticulitis Patient Disposition: Admitted As Inpatient Print Language: [place]
[2023-11-30 00:39] LABS: MANUAL DIFF FLAG NO
[2023-11-30 00:54] LABS: Basophils Percent Auto 0.2 % (0-2); Eosinophils Absolute Auto 0.1 X10*3/uL (0.0-0.4); Eosinophils Percent Auto 0.6 % (0-4); Hematocrit 39.9 % (37.0-47.0); Hemoglobin 13.8 g/dl (12.0-16.0); Imm Gran Abs Auto 0.06 X10*3/uL (0.00-0.03); Imm Gran Pct Auto 0.4 % (0.0-0.4); Lymphocytes Absolute Auto 2.9 X10*3/uL (1.2-4.9); Lymphocytes Percent Auto 20.1 % (20-40); Mean Corpuscular HGB Conc 34.6 g/dl (31.0-35.0); Mean Corpuscular Hemoglobin 29.9 pg (27.0-33.0); Mean Corpuscular Volume 86.4 fL (80.0-98.0); Mean Platelet Volume 9.2 fL (9.4-12.3); Monocytes Percent Auto 7.2 % (2-11); Neutrophils Absolute Auto 10.4 x10*3/uL (2.0-8.3); Neutrophils Percent Auto 71.5 % (45-73); Platelet Count 243 X10*3/uL (160-400); Red Blood Count 4.62 X10*6/uL (4.20-5.50); Red Cell Distribution Width 12.5 % (11.0-16.0); White Blood Count 14.5 X10*3/uL (4.8-10.8)
[2023-11-30 00:57] LABS: Alanine Aminotransferase 10 U/L (0-31); Alkaline Phosphatase 85 U/L (39-117); Anion Gap 11 (12-20); Aspartate Amino Transferase 10 U/L (5-31); Bilirubin Direct 0.3 mg/dL (0.0-0.5); Bilirubin Total 0.8 mg/dL (0.0-1.0); Blood Urea Nitrogen 9 mg/dL (9-16); Calcium 9.5 mg/dL (8.4-10.2); Carbon Dioxide 24 mmol/L (22-29); Chloride 107 mmol/L (96-108); Creatinine Clr Calc Pharmacy 104.2; Estimated Glomerular Filt Rate > 60; Glucose Random 121 mg/dL (60-115); Lipase 20 U/L (8-78); Potassium 3.9 mmol/L (3.3-5.1); Sodium 138 mmol/L (135-145); Total Protein 7.4 g/dL (6.5-8.0)
[2023-11-30] MEDS: iohexoL 350 MG/ML 100 ML INFUS..BTL 85 ML IV (01:17)
[2023-11-30] MEDS: metroNIDAZOLE/NS 500 MG/100 ML PIGGYBACK 100 MG IV ×3 (02:24→18:44)
[2023-11-30] MEDS: levoFLOXacin/D5W 500 MG/100 ML PIGGYBACK 100 MG IV (02:24)
[2023-11-30 02:35] LABS: Appearance Urine Clear; Color Urine Yellow; Glucose Urine UA Negative (Negative); Leukocyte Esterase Urine Negative (Negative); Nitrite Urine Negative (Negative); PH 6.5 (5.0-9.0); Urine Blood Negative (Negative); Urine Ketones Negative (Negative); Urine Protein Negative (Neg-Trace)
[2023-11-30] MEDS: Ketorolac Tromethamine 30 MG/ML VIAL IVPUSH (03:51)
--- NOTE | 2023-11-30 03:52 | P.HPHOSP_ITS ---
History of Present Illness Date of Service: 11/30/23 Attending physician on admission: Tara Park Chief Complaint: Abdominal pain Isabel Dee is a very pleasant 47 years old woman with no significant past medical history except for GERD presents to the emergency department complaining of lower abdominal pain that started Sunday associated with nausea and vomiting. She described the pain as intermittent and burning in character. Intensity 10/10. Last meal before pain was banana with peanut butter. She denied diarrhea. Last bowel movement was small. She denied any pain with urination or any other acute urinary changes. Denies fever or chills. She denied Surgical past history significant for hysterectomy and tubal ligation. She is a tobacco smoker since age 19 (1ppk every 2-3 days). Denies history of alcohol abuse or illicit drug use. In the ED, she was found to have stable vital signs. Blood workup was remarkable for leukocytosis of 14.7. Hemoglobin platelets are normal. There are no electrolyte imbalances. Renal function is normal. LFTs and lipase are normal. Urinalysis is normal. Abdomen pelvis CT scan showed diverticulitis of the proximal sigmoid colon with suspicious microperforation without pericolic abscess. It also showed cholelithiasis without obvious evidence of cholecystitis, right hepatic lobe lesion and cystic structure in the left breast. ED tx: Levofloxacin 500 mg IV, metronidazole 500 mg IV and ketorolac 30 mg IV. Review of Systems 2 Review of Systems: All 12 systems were reviewed and normal except as noted in HPI. FORMERLY [facility], [facility] Medical History (Updated 11/30/23 @ 04:13 by Tara Park MD) Esophageal stricture GERD (gastroesophageal reflux disease) Surgical History Hx of tubal ligation H/O bilateral breast reduction surgery History of hysterectomy Social History Are you a primary hospice patient care secretary to a significant other at home: No Do you presently have visiting nurse or other home services: No Patient Tobacco Use Status: Current everyday Tobacco user Tobacco use type: Cigarette Cigarettes Per Day: 4 Smoked in Last 30 Days: Yes Use of substances other than those prescribed or required for medical reasons: No Advance Directives: No Advance Directives Information Provided: Yes Patient : No Meds Allergies Allergy/AdvReac Type Severity Reaction Status Date / Time No Known Allergies Allergy Verified 11/30/23 00:08 Active Medications: Current Medications Acetaminophen (Acetaminophen 325 Mg Tablet) 975 mg PO Q6H PRN PRN Reason: Pain, Mild (Pain Scale 1-3) Lactated Ringer's (Lr) 1,000 mls @ 125 mls/hr IVCONT .Q8H [facility] Levofloxacin (Levaquin) 500 mg in 100 mls @ 100 mls/hr IV Q24H [facility] Metronidazole (Flagyl) 500 mg in 100 mls @ 100 mls/hr IV Q8H [facility] Ketorolac Tromethamine (Ketorolac Tromethamine 15 Mg/Ml Vial) 15 mg IVPUSH Q8H PRN PRN Reason: Pain, Severe (Pain Scale 7-10) Sodium Chloride (0.9 % Sodium Chloride Flush 3 Ml Syringe) 3 ml IVFLUSH QSHIFT [facility] Home Medications ?Medication ?Instructions ?Recorded ?Confirmed ?Last Taken ?Type Protonix 40 PO DAILY PRN Acid Reflux 10/19/22 10/19/22 08/16/22 History cholecalciferol (vitamin D3) 50 50 mcg PO DAILY 07/16/23 08/01/23 History mcg (2,000 unit) tablet (Vitamin D3) omega-3 acid ethyl esters 1 gram 2 cap PO BID 07/16/23 08/01/23 History capsule Physical Exam 2 Vital Signs and Narrative: Vital Signs: Last Vital Signs Temp 98 F 11/30/23 00:07 Pulse 108 H 11/30/23 00:07 Resp 20 11/30/23 00:07 BP 138/88 11/30/23 00:07 Pulse Ox 99 11/30/23 00:07 O2 Del Method Room Air 11/30/23 00:07 BMI result Body Mass Index 30.3 Constitutional - Awake and Alert, No apparent distress. Pleasant. Cooperative HEENT- Pupils equally round. Heart - S1S2, RRR. Normal - Normal lung expansion, Normal respiratory effort, No respiratory distress, CTA bilaterally Abdomen - Nondistended. Soft. Normal bowel sounds. Left lower quadrant pelvic tenderness. No rebound. No guarding. Extremities - no calf tenderness bilaterally, no swelling Musculoskeletal - Normal inspection, normal ROM Skin - Warm/Dry. No pallor. No jaundice Neurological - Alert & oriented x3. No focal weakness grossly noted. Normal speech. Psychological - Appropriate affect Results Labs 11/30/23 00:33 11/30/23 00:33 Labs: Laboratory Results - last 24 hr 11/30/23 11/30/23 00:33 02:29 MCV 86.4 MCH 29.9 MCHC 34.6 RDW 12.5 Plt Count 243 MPV 9.2 L Immature Gran % (Auto) 0.4 Neut % (Auto) 71.5 Lymph % (Auto) 20.1 [place] % (Auto) 7.2 Eos % (Auto) 0.6 Baso % (Auto) 0.2 Lymph # (Auto) 2.9 [place] # (Auto) 1.0 Eos # (Auto) 0.1 Baso # (Auto) 0.0 Abs Immat Gran (auto) 0.06 H Absolute Neuts (auto) 10.4 H Absolute Nucleated RBC 0.000 Nucleated RBC % (auto) 0.0 Anion Gap 11 L Estim Creat Clear Calc 104.2 Estimated GFR > 60 Random Glucose 121 H Calcium 9.5 Total Bilirubin 0.8 Direct Bilirubin 0.3 AST 10 ALT 10 Alkaline Phosphatase 85 Total Protein 7.4 Albumin 4.0 Lipase 20 Urine Color Yellow Urine Appearance Clear Urine pH 6.5 Ur Specific [place] 1.020 Urine Protein Negative Urine Glucose (UA) Negative Urine Ketones Negative Urine Blood Negative Urine Nitrite Negative Ur Leukocyte Esterase Negative Imaging Radiologist's Impressions: Impressions Abdomen/Pelvis CT 11/30/23 01:23 IMPRESSION: 1. Diverticulitis of the proximal sigmoid colon. A couple tiny foci of adjacent free air are likely present, suspicious for sequelae of microperforation. No pericolonic abscess. Correlation with recent or followup colonoscopy is advised to exclude an underlying mass lesion. 2. Cholelithiasis with prominent gallbladder distention, though without appreciable wall thickening or surrounding inflammation. If there is clinical concern for cholecystitis, this would be better further assessed with ultrasound. 3. Mildly hypoattenuating right hepatic lobe lesion measuring up to 1.3 cm, nonspecific. If not already performed, assessment with nonemergent dynamic liver MRI is recommended. 4. Cystic structure in the lateral left breast measuring up to 3.2 cm, only partially visualized on this exam. Correlation with mammography/ultrasound is recommended. This critical result was discussed with Dr. Ballard on 11/30/2023 2:18 AM, and it was ascertained that the content and urgency of the report was understood at the time of direct communication. Assessment and Plan (1) Diverticulitis: Status: Acute (2) GERD (gastroesophageal reflux disease): Qualifiers: Esophagitis presence: without esophagitis Qualified Code(s): K21.9 - Gastro-esophageal reflux disease without esophagitis Status: Acute (3) Cholelithiasis: Qualifiers: Cholelithiasis location: gallbladder Cholecystitis presence: without cholecystitis Biliary obstruction: without biliary obstruction Qualified Code(s): K80.20 - Calculus of gallbladder without cholecystitis without obstruction Status: Acute (4) Liver lesion, right lobe: Status: Acute Plan Isabel Dee is a very pleasant 47 years old woman admitted with * Acute sigmoid diverticulitis associated with microperforation. SIRS criteria (leukocytosis, tachycardia) but no severe sepsis Admit to hospitalist service. NPO except for meds. Continue IV fluids. Continue empiric IV antibiotic therapy with Levaquin and and Flagyl. Check lactic acid. Pain control with Tylenol and/or Toradol IV as needed. Surgery consult for further recommendations. * Cholelithiasis, incidental finding. No evidence of cholecystitis on CT. No right upper quadrant or epigastric pain. LFTs and lipase are normal. * Right hepatic lobe lesion, nonspecific. Nonemergent liver MRI (as an outpatient). * Left breast cystic lesion; incidental finding. Mammogram/breast ultrasound. Follow as an outpatient. * GERD. Continue PPI. DVT prophylaxis: SCDs, encourage early ambulation. Code status: Full Patient will need hospitalization for at least 2 midnights for acute sigmoid diverticulitis associated with microperforation therapy with IV antibiotics and evaluation by Surgical Service. Quality Stroke Does the patient have a stroke diagnosis?: No VTE Prior VTE?: No VTE Risk Level:: Medical - low VTE Device Contraindication: N/A - Device Ordered VTE Drug Contraindication: Treatment Not Indicated
[2023-11-30] MEDS: Lactated Ringers 1,000 ML 125 ML IVCONT ×3 (03:57→22:57)
[2023-11-30 05:37] LABS: Basophils Percent Auto 0.2 % (0-2); Eosinophils Absolute Auto 0.1 X10*3/uL (0.0-0.4); Eosinophils Percent Auto 0.5 % (0-4); Hematocrit 37.2 % (37.0-47.0); Hemoglobin 12.8 g/dl (12.0-16.0); Imm Gran Abs Auto 0.04 X10*3/uL (0.00-0.03); Imm Gran Pct Auto 0.3 % (0.0-0.4); Lymphocytes Absolute Auto 2.2 X10*3/uL (1.2-4.9); MANUAL DIFF FLAG NO; Mean Corpuscular HGB Conc 34.4 g/dl (31.0-35.0); Mean Corpuscular Hemoglobin 29.9 pg (27.0-33.0); Mean Corpuscular Volume 86.9 fL (80.0-98.0); Mean Platelet Volume 8.9 fL (9.4-12.3); Neutrophils Absolute Auto 10.4 x10*3/uL (2.0-8.3); Platelet Count 219 X10*3/uL (160-400); Red Blood Count 4.28 X10*6/uL (4.20-5.50); Red Cell Distribution Width 12.4 % (11.0-16.0); White Blood Count 13.7 X10*3/uL (4.8-10.8)
[2023-11-30 05:45] LABS: Lactic Acid 0.6 mmol/L (0.5-2.0)
[2023-11-30 05:50] LABS: Alanine Aminotransferase 9 U/L (0-31); Albumin Level 3.8 g/dL (3.5-5.0); Alkaline Phosphatase 78 U/L (39-117); Anion Gap 11 (12-20); Aspartate Amino Transferase 8 U/L (5-31); Bilirubin Total 0.7 mg/dL (0.0-1.0); Blood Urea Nitrogen 8 mg/dL (9-16); Calcium 9.3 mg/dL (8.4-10.2); Carbon Dioxide 23 mmol/L (22-29); Chloride 109 mmol/L (96-108); Creatinine Clr Calc Pharmacy 105.6; Estimated Glomerular Filt Rate > 60; Glucose Random 115 mg/dL (60-115); Potassium 3.9 mmol/L (3.3-5.1); Sodium 139 mmol/L (135-145); Total Protein 6.9 g/dL (6.5-8.0)
[2023-11-30] MEDS: Pantoprazole Sodium 40 MG/10 ML VIAL IVPUSH (06:15)
--- NOTE | 2023-11-30 07:59 | PM.CNGS ---
History of Present Illness Consult details Consult date: 11/30/23 Narrative: [age] year old female admitted last night because of acute diverticulitis. She says she has been having left lower quadrant and suprapubic pain for about 2 days. This persisted throughout the day yesterday shows she decided to come to the emergency room. She describes 1 episode of vomiting yesterday although she says that because she ate a banana. She denies any diarrhea. She denies any fever or chills. She describes having a similar but milder episode sometime in July 2024. She otherwise says she has never been diagnosed to have diverticular disease in the past She had an EGD and colonoscopy last August 2023 because of chronic diarrhea as well as dysphagia. She was diagnosed to have H pylori gastritis then. Review of Systems Constitutional: Constitutional: Denies chills and Denies fever(s) Cardiovascular: Cardiovascular: Denies chest pain, Denies dyspnea and Denies dyspnea on exertion Respiratory: Respiratory: Denies cough, Denies dyspnea and Denies dyspnea on exertion Gastrointestinal: Gastrointestinal: Denies no additional gastrointestinal complaints, Denies hematochezia and Denies change in bowel habits Genitourinary: Genitourinary: Denies hematuria Musculoskeletal: Musculoskeletal: Denies back pain and Denies limited range of motion Neurologic: Denies focal weakness and Denies convulsions Psychiatric: Psychiatric: Denies depression and Denies mood swings PMFSH Past Medical History Medical History Esophageal stricture GERD (gastroesophageal reflux disease) Surgical History Surgical History Hx of tubal ligation H/O bilateral breast reduction surgery History of hysterectomy Social History Social History Household Members: Spouse, Significant Other and Family Housing: House Are you a primary medicare nurse to a significant other at home: No Do you presently have visiting nurse or other home services: No Patient Tobacco Use Status: Current everyday Tobacco user Tobacco use type: Cigarette Cigarette Packs Per Day: 0.33 Cigarettes Per Day: 6.6 Second Hand Smoke Exposure: No service: No Meds Allergies Allergy/AdvReac Type Severity Reaction Status Date / Time levofloxacin Allergy Rash Verified 12/01/23 05:25 Active Medications: Current Medications Acetaminophen (Acetaminophen 325 Mg Tablet) 975 mg PO Q6H PRN PRN Reason: Pain, Mild (Pain Scale 1-3) Lactated Ringer's (Lr) 1,000 mls @ 125 mls/hr IVCONT .Q8H [facility] Last Admin: 11/30/23 03:57 Dose: 125 mls/hr Levofloxacin (Levaquin) 500 mg in 100 mls @ 100 mls/hr IV Q24H [facility] Metronidazole (Flagyl) 500 mg in 100 mls @ 100 mls/hr IV Q8H [facility] Ketorolac Tromethamine (Ketorolac Tromethamine 15 Mg/Ml Vial) 15 mg IVPUSH Q8H PRN PRN Reason: Pain, Severe (Pain Scale 7-10) Pantoprazole Sodium (Pantoprazole Sodium 40 Mg/10 Ml Vial) 40 mg IVPUSH DAILY@0630 [facility] Last Admin: 11/30/23 06:15 Dose: 40 mg Sodium Chloride (0.9 % Sodium Chloride Flush 3 Ml Syringe) 3 ml IVFLUSH QSHIFT [facility] Physical Exam Vital Signs: Vital Signs: Last Vital Signs Temp 98.0 F 11/30/23 06:37 Pulse 88 11/30/23 06:37 Resp 16 11/30/23 06:37 BP 125/52 L 11/30/23 06:37 Pulse Ox 99 11/30/23 06:37 O2 Del Method Room Air 11/30/23 06:37 BMI result Body Mass Index 30.3 Const: Other: Anxious but appears comfortable, nontoxic looking General: comfortable and no acute distress Resp: Effort & Inspection: normal respiratory effort Cardio: Rate: regular rate GI: Other: Tender in the left lower quadrant no guarding rebound Palpation (GI): not soft, not firm and no guarding Results Labs 11/30/23 05:33 11/30/23 05:33 Labs: Abnormal lab results 11/30/23 11/30/23 Range/Units 00:33 05:33 WBC 14.5 H 13.7 H (4.8-10.8) X10*3/uL MPV 9.2 L 8.9 L (9.4-12.3) fL Neut % (Auto) 76.0 H (45-73) % Lymph % (Auto) 16.0 L (20-40) % Abs Immat Gran (auto) 0.06 H 0.04 H (0.00-0.03) X10*3/uL Absolute Neuts (auto) 10.4 H 10.4 H (2.0-8.3) x10*3/uL Chloride 109 H (96-108) mmol/L Anion Gap 11 L 11 L (12-20) BUN 8 L (9-16) mg/dL Random Glucose 121 H (60-115) mg/dL Short CBC 11/30/23 11/30/23 Range/Units 00:33 05:33 WBC 14.5 H 13.7 H (4.8-10.8) X10*3/uL Hgb 13.8 12.8 (12.0-16.0) g/dl Hct 39.9 37.2 (37.0-47.0) % Plt Count 243 219 (160-400) X10*3/uL BMP 11/30/23 11/30/23 00:33 05:33 Sodium 138 139 Potassium 3.9 3.9 Chloride 107 109 H Carbon Dioxide 24 23 BUN 9 8 L Creatinine 0.75 0.74 Calcium 9.5 9.3 Liver Function 11/30/23 11/30/23 Range/Units 00:33 05:33 Total Bilirubin 0.8 0.7 (0.0-1.0) mg/dL Direct Bilirubin 0.3 (0.0-0.5) mg/dL AST 10 8 (5-31) U/L ALT 10 9 (0-31) U/L Alkaline Phosphatase 85 78 (39-117) U/L Albumin 4.0 3.8 (3.5-5.0) g/dL Urine 11/30/23 Range/Units 02:29 Urine Color Yellow Urine Appearance Clear Urine pH 6.5 (5.0-9.0) Ur Specific [place] 1.020 (1.005-1.025) Urine Protein Negative (Neg-Trace) mg/dL Urine Glucose (UA) Negative (Negative) mg/dL All other labs normal. Assessment and Plan (1) Diverticulitis: Status: Acute Plan She has left lower quadrant pain, and her CAT scan shows inflammatory changes in her mid sigmoid, along with what appears to be 2 small locules of air consistent with a microperforation She otherwise has a benign exam although with tenderness. She does not appear to be toxic. I agree with IV antibiotic treatment and keeping her NPO temporarily. I did explain to her that if she has clinical worsening, she via require laparotomy. She understands the plan and is comfortable with this. Procedures Date of Service Date of Service: 12/03/23
--- NOTE | 2023-11-30 08:27 | PC.NURSE ---
PT IS A/O X 4 NO SOB/ROBINSON NOTED SPEAKS IN FULL SENTENCES. C/O 5/10 ABD PAIN. PT STATES THAT THE TORADOL IS NOT EFFECTIVE, MD AWARE. PT AWARE OF PLAN OF CARE WILL CONTINUE TO MONITOR.
[2023-11-30] MEDS: 0.9 % Sodium Chloride Flush 3 ML SYRINGE IVFLUSH ×2 (08:29→16:45)
--- NOTE | 2023-11-30 08:43 | PHA.MEDREC ---
Pharmacy Consult ? Medication Reconciliation Pharmacy has completed the medication reconciliation. Med rec checked from nurse overnight
[2023-11-30] MEDS: oxyCODONE HCl Immed Release 5 MG TABLET PO ×3 (09:33→16:44)
[2023-11-30] MEDS: Acetaminophen 325 MG TABLET 975 MG PO (09:33)
--- NOTE | 2023-11-30 10:28 | MHC.CM.PN ---
pt lives with dgter is indpeendnt home no servies is dc plan
[2023-12-01] MEDS: diphenhydrAMINE HCL 50 MG/ML VIAL 25 MG IVPUSH (01:14)
[2023-12-01] MEDS: oxyCODONE HCl Immed Release 5 MG TABLET PO (01:14)
[2023-12-01 03:18] VITALS: BP 110/57; PULSE 90; RESP 18; TEMP 36.2; O2SAT 97
[2023-12-01] MEDS: Lactated Ringers 1,000 ML 125 ML IVCONT (05:13)
[2023-12-01] MEDS: Pantoprazole Sodium 40 MG/10 ML VIAL IVPUSH (05:20)
[2023-12-01 07:18] VITALS: BP 114/63; PULSE 80; RESP 18; TEMP 37.1; O2SAT 97
[2023-12-01] MEDS: Piperacillin Sodium/Tazobactam 3.375 GM in 0.9 % Sodium Chloride 50 ML IV (08:23)
--- NOTE | 2023-12-01 11:40 | P.PNGS_ITS ---
Subjective Subjective Date of Service: 12/01/23 Interval history: feels well no abdominal pain had bowel movement feels bloated though Physical Exam 2 Vital Signs: Vital Signs: Last Vital Signs Temp 98.7 F 12/01/23 07:18 Pulse 80 12/01/23 07:18 Resp 18 12/01/23 07:18 BP 114/63 12/01/23 07:18 Pulse Ox 97 12/01/23 07:18 O2 Del Method Room Air 12/01/23 07:18 BMI result Body Mass Index 31.3 Const: General: cooperative, healthy appearing, comfortable and no acute distress GI: Other: abdomen soft nontender nondistended Objective Data Active Medications Acetaminophen (Acetaminophen 325 Mg Tablet) 975 mg PO Q6H PRN PRN Reason: Pain, Mild (Pain Scale 1-3) Last Admin: 11/30/23 09:33 Dose: 975 mg Documented By: FAISAL Diphenhydramine HCl (Diphenhydramine Hcl 50 Mg/Ml Vial) 25 mg IVPUSH Q4H PRN PRN Reason: rash Last Admin: 12/01/23 01:14 Dose: 25 mg Documented By: CHINTAN Lactated Ringer's (Lr) 1,000 mls @ 125 mls/hr IVCONT .Q8H [facility] Last Admin: 12/01/23 11:06 Dose: Not Given Documented By: BREA Non-Admin Reason: IV Running Piperacillin Sod/Tazobactam (Sod 3.375 gm/ Sodium Chloride) 50 mls @ 100 mls/hr IV Q6H [facility] Last Infusion: 12/01/23 09:58 Dose: Infused Documented By: BREA Ketorolac Tromethamine (Ketorolac Tromethamine 15 Mg/Ml Vial) 15 mg IVPUSH Q8H PRN PRN Reason: Pain, Severe (Pain Scale 7-10) Oxycodone HCl (Oxycodone Hcl Immed Release 5 Mg Tablet) 5 mg PO Q4H [facility] Last Admin: 12/01/23 11:06 Dose: Not Given Documented By: BREA Non-Admin Reason: Patient Refused Pantoprazole Sodium (Pantoprazole Sodium 40 Mg/10 Ml Vial) 40 mg IVPUSH DAILY@0630 [facility] Last Admin: 12/01/23 05:20 Dose: 40 mg Documented By: CHINTAN Sodium Chloride (0.9 % Sodium Chloride Flush 3 Ml Syringe) 3 ml IVFLUSH QSHIFT [facility] Last Admin: 12/01/23 07:42 Dose: Not Given Documented By: BREA Non-Admin Reason: IV Running Labs 11/30/23 05:33 11/30/23 05:33 Procedures Date of Service Date of Service: 12/01/23 Progress Note: A&P Assessment and plan (1) Diverticulitis: Status: Acute Plan pt with divertiuclitis but doing well - dc with po antibx and fu with surgery as outpt pt known to Dr Mota and will talk to him next month about other GI issues -? some IBS as well Time Spent With Patient Time: Total time managing care of this patient today ____ minutes. Quality Stroke Does the patient have a stroke diagnosis?: No VTE Prior VTE?: No VTE Risk Level:: Medical - low VTE Device Contraindication: N/A - Device Ordered VTE Drug Contraindication: Treatment Not Indicated
--- NOTE | 2023-12-01 12:18 | P.DS_ITS ---
DS: Providers Provider Date of Service: 12/01/23 Date of admission: 11/30/23 03:46 Primary care physician: Goldy Beard MD Consults: 11/30/23 03:51 Consult to General Surgery Routine Consulting Provider: [facility] General Surgeons Reason for consultation: Acute diverticulitis with microperforation Has provider been notified: No Attending physician on discharge: Holly Beard Discharging clinician: Holly Beard DS: Diagnosis Discharge Diagnosis (1) Diverticulitis: Status: Acute DS: Summary Hospital Course Hospital Course: 47 years old woman with no significant past medical history except for GERD presents to the emergency department complaining of lower abdominal pain that started Sunday associated with nausea and vomiting. She described the pain as intermittent and burning in character. Intensity 10/10. Last meal before pain was banana with peanut butter. She denied diarrhea. Last bowel movement was small. She denied any pain with urination or any other acute urinary changes. Denies fever or chills. She denied Surgical past history significant for hysterectomy and tubal ligation. She is a tobacco smoker since age 19 (1ppk every 2-3 days). Denies history of alcohol abuse or illicit drug use. In the ED, she was found to have stable vital signs. Blood workup was remarkable for leukocytosis of 14.7. Hemoglobin platelets are normal. There are no electrolyte imbalances. Renal function is normal. LFTs and lipase are normal. Urinalysis is normal. Abdomen pelvis CT scan showed diverticulitis of the proximal sigmoid colon with suspicious microperforation without pericolic abscess. It also showed cholelithiasis without obvious evidence of cholecystitis, right hepatic lobe lesion and cystic structure in the left breast. ED tx: Levofloxacin 500 mg IV, metronidazole 500 mg IV and ketorolac 30 mg IV. Hospital course: Patient was admitted for acute sigmoid diverticulitis with microperforation: S tarted on IV antibiotics, bowel rest and IV hydration patient seems to be improved significantly-patient tolerating diet now, going home with the p.o. antibiotics. Liver lesion: Follow-up with GI out patiently consider outpatient MRI. Breast cyst: already has appointment for mammogram . plan: complete augmentin 875 mg po bid for 7 days .Correlation with recent or followup colonoscopy is advised to exclude an underlying mass lesion. Liver lesion: Follow-up with GI out patiently consider outpatient MRI. Breast cyst: already has appointment for mammogram . Above management discussed with the patient in detail length she understand and in agreement with the above plan, time spent 35 minute. Time Attestation Total time managing care of this patient today: 35 mintues. Discharge Coordination Time (in mins): 35 min Quality: Safe Use of Opioids Does Pt have an Active Cancer Diagnosis on the Problem List?: No Quality: Stroke Does the patient have a stroke diagnosis?: No Physical Exam Vital Signs: Vital Signs: Last Vital Signs Temp 98.7 F 12/01/23 07:18 Pulse 80 12/01/23 07:18 Resp 18 12/01/23 07:18 BP 114/63 12/01/23 07:18 Pulse Ox 97 12/01/23 07:18 O2 Del Method Room Air 12/01/23 07:18 BMI result Body Mass Index 31.3 Appearance: Alert.? Oriented X3.? cvs: rrr, [id number] , no murmur res: clear to auscultation ,no rhonchii or wheezing abd: no rebound or guarding ,nt, bs present. ext pulses present , no cyanosis . neuro: axo3 , nonfocal. DS: Data Imaging Chest x-ray: Radiologist's impression: ITS Impressions Abdomen/Pelvis CT 11/30/23 01:23 IMPRESSION: 1. Diverticulitis of the proximal sigmoid colon. A couple tiny foci of adjacent free air are likely present, suspicious for sequelae of microperforation. No pericolonic abscess. Correlation with recent or followup colonoscopy is advised to exclude an underlying mass lesion. 2. Cholelithiasis with prominent gallbladder distention, though without appreciable wall thickening or surrounding inflammation. If there is clinical concern for cholecystitis, this would be better further assessed with ultrasound. 3. Mildly hypoattenuating right hepatic lobe lesion measuring up to 1.3 cm, nonspecific. If not already performed, assessment with nonemergent dynamic liver MRI is recommended. 4. Cystic structure in the lateral left breast measuring up to 3.2 cm, only partially visualized on this exam. Correlation with mammography/ultrasound is recommended. This critical result was discussed with Dr. Ballard on 11/30/2023 2:18 AM, and it was ascertained that the content and urgency of the report was understood at the time of direct communication. Discharge Plan Discharge Anticipated Discharge Date/Time: 12/01/23 11:53 Patient Disposition: Home, Self-Care Discharge Diagnosis: acute sigmoid diverticulitis . Referrals: Goldy Beard MD [Primary Care Provider] - 1 Week Discharge Medications: New amoxicillin-pot clavulanate 875-125 mg Tablet 1 tab PO Q12H Qty: 13 0RF Continued pantoprazole 20 mg tablet,delayed release (DR/EC) 20 mg PO BID Qty: 28 2RF Discharge Orders: Discharge Order (Routine); Ordered 12/01/23 Ordered By: Holly Beard Diet: Advance to usual diet Activity on Discharge: As tolerated Stand Alone Forms: Patient Portal Discharge page Print Language: Slovenian Care Plan Goals: Patient was admitted for acute sigmoid diverticulitis with microperforation: Started on IV antibiotics, bowel rest and IV hydration patient seems to be improved significantly-patient tolerating diet now, going home with the p.o. antibiotics. Liver lesion: Follow-up with GI out patiently consider outpatient MRI. Breast cyst: already has appointment for mammogram . Health Concerns: complete augmentin 875 mg po bid for 7 days .Correlation with recent or followup colonoscopy is advised to exclude an underlying mass lesion. Liver lesion: Follow-up with GI out patiently consider outpatient MRI. Breast cyst: already has appointment for mammogram . Plan of Treatment: As above. Assessment: As above.
[2023-12-01] MEDS: Amoxicillin/Potassium Clav 875 MG TABLET PO (12:34)
== END 2023-12-01 13:30 | disposition home or self-care (01) | DRG 244 ==
LOC: HO.ED 03:32 → HO.EDOVER 03:53 → HO.S3 15:31
PROVIDERS: Admitting Provider Internal Medicine; Emergency Provider Emergency Medicine; PCP Internal Medicine; Visit Provider Internal Medicine
DX: K57.20 Diverticulitis of large intestine with perforation and abscess without bleeding (principal); K80.20 Calculus of gallbladder without cholecystitis without obstruction; F17.210 Nicotine dependence, cigarettes, uncomplicated; K21.9 Gastro-esophageal reflux disease without esophagitis; Z71.6 Tobacco abuse counseling
CPT/HCPCS: 36415; 74177; 80048; 80053; 80076; 81003; 83605; 83690; 85025; 99285; C9113; J1200; J1836; J1885; J1956; J2543; J7120; Q9967

== ENCOUNTER → 2023-11-30 03:46 | Outpatient (BNV) | payer OTHER, SELFPAY | PROVIDERS: Admitting Provider Internal Medicine; Emergency Provider Emergency Medicine; PCP Internal Medicine; Visit Provider Internal Medicine | DX: K57.92 Diverticulitis of intestine, part unspecified, without perforation or abscess without bleeding (principal) | CPT/HCPCS: 99222; 99239 ==

== ENCOUNTER → 2023-11-30 03:46 | Outpatient (BNV) | payer OTHER, SELFPAY | PROVIDERS: Admitting Provider Internal Medicine; Emergency Provider Emergency Medicine; PCP Internal Medicine; Visit Provider Surgery | DX: K57.92 Diverticulitis of intestine, part unspecified, without perforation or abscess without bleeding (principal) | CPT/HCPCS: 99222; 99232 ==

== ENCOUNTER 2023-12-04 12:10 | Outpatient (REF) | payer OTHER, SELFPAY ==
--- NOTE | ~2023-12-04 | MM_ITS ---
EXAMINATION: MM DIAGNOSTIC DIGITAL BREAST TOMOSYNTHESIS, BILATERAL US BREAST LIMITED, LEFT MAMMOGRAPHY: CLINICAL INFORMATION: Patient due for bilateral screening. Also, final follow-up of right breast calcifications to establish two-year stability. Evaluate probable cyst in left breast 3:[address] examination partially 11/30/2023. Patient has history of breast reduction surgery. COMPARISON: Mammography: 11/30/2022, 11/25/2021, 11/21/2021 (BI-RADS 0), 11/16/2020, 09/02/2019, 08/27/2018. CT abdomen and pelvis 11/30/2023. TECHNIQUE: Digital breast tomosynthesis is performed in both the craniocaudal and mediolateral oblique views along with computer-aided detection (CAD). Synthesized 2D images are generated from the tomosynthesis. In addition, 2-D spot magnification views of the right breast were performed in the CC x2, and LM x1 projections. FINDINGS: The breasts are extremely dense, which lowers the sensitivity of mammography (ACR BI-RADS breast composition Category d). There are both scattered global and regional calcifications in the right breast, with a stable and unchanged tight grouping of punctate minimally pleomorphic calcifications in the far medial slightly inferior right breast, middle to posterior one third. There has been no aggressive change in the number of calcifications is stable over 2 years. A few may be layering on the LM position. These are benign and no further follow-up recommended. There is an oval mass in the left breast at the 9:00 position which is isodense and circumscribed, measuring 3.3 cm in diameter, slightly larger than in 202. On CT examination this appeared to represent a cyst but was only partially imaged. This will be evaluated by ultrasound. Otherwise, scattered punctate calcifications in both breasts are stable and benign, with the majority layering on the LM magnification view, indicating milk of calcium. There is no developing suspicious mass or developing region of architectural distortion in either breast. The extremely dense and nodular parenchymal pattern of both breasts has been without change since 2019. ULTRASOUND: CLINICAL INFORMATION: Evaluate oval mass left breast 9:00 position. COMPARISON: No relevant prior. TECHNIQUE: Targeted sonographic evaluation was performed using a high frequency linear transducer. Attention was focused on the 9:00 oval mass in the left breast posterior depth. Selected archived documentation. FINDINGS: LEFT BREAST: -In the left breast 3:00 axis, 9 cm from the nipple, there is an oval anechoic simple cyst with good through transmission measuring 3.4 x 3.0 x 1.4 cm. This correlates well with the abnormality seen on mammography. This is benign. No further follow-up recommended. Aspiration is offered if the cyst is symptomatic. MM/MM tomosynthesis diagnostic BI IMPRESSION: There are no findings in either breast suspicious for malignancy. Grouped calcifications in the lower far medial left breast have been stable over 2 years, establishing benignity. A few appear to layer on the LM views suggesting milk of calcium. No further follow-up recommended. Scattered calcifications in both breasts also appear to layer on the ML and MLO projections, highly suggestive of milk of calcium. These are stable and benign. No suspicious grouping. Mass in the 3:00 axis of the left breast is a simple cyst. No further follow-up recommended. Aspiration could be considered if the cyst is symptomatic or bothersome. OVERALL ASSESSMENT: Mammography: BI-RADS 2 - Benign Findings Ultrasound: BI-RADS 2 - Benign Findings RECOMMENDATION: 1 year F/U Results were provided to the patient at time of visit by the technologist. This patient's information was entered into a reminder system with a target due date for their next mammogram.
== END 2023-12-04 12:11 | disposition home or self-care (01) ==
LOC: HO.MAMMO 12:10
PROVIDERS: PCP Internal Medicine; Visit Provider Internal Medicine
DX: R92.1 Mammographic calcification found on diagnostic imaging of breast (principal)
CPT/HCPCS: 76642; 77062; 77066

== ENCOUNTER → 2023-12-04 12:30 | Outpatient (BNV) | payer OTHER, SELFPAY | PROVIDERS: PCP Internal Medicine; Visit Provider Radiology Diagnostic Radiology | DX: N60.02 Solitary cyst of left breast (principal); R92.1 Mammographic calcification found on diagnostic imaging of breast; R92.343 Mammographic extreme density, bilateral breasts | CPT/HCPCS: 76642; 77062; 77066 ==

== ENCOUNTER 2023-12-17 12:16 | Outpatient (AMB) | payer OTHER, SELFPAY ==
--- NOTE | 2023-12-17 12:26 | A.OFFVIS_ITS ---
Vital Signs 12/17/23 12:27 Height 5 ft 6 in Weight 188 lb BMI 30.3 BP 116/72 Blood Pressure Location Lt brachial Position Sitting Pulse 75 Intake Visit Reasons: 4 month follow up Intake Note: Patient follow up Patient denies any GI issues. Ager Tender Required: No Accompanied by: Self / Same As Patient Allergies levofloxacin Allergy (Verified 12/17/23 12:25) Rash HPI HPI 4 month follow up: Details: 48 yr old patient being called for f/u for dysphagia and choking RECAP: Has issues with choking and dysphagia for years can happen with thick meats, steak, has occ heartburn she says her GB does not work and she has diarrhea she denies melena or diarrhea her weight is stable she never had egd or colonoscopy Ba swallow: Indentation of posterior cervical esophageal wall from ventral spondylosis C6-C7 disc level but no obstruction. Small sliding hiatal hernia. EGD/[place] 09/05 Endoscopy Findings: hiatal hernia duodenitis erosive esophagitis Colonoscopy Findings: polyp internal hemorrhoids diverticular disease SCAD Path: SSA, H pylori Reflux changes INTERIM: she had diverticulitis and micro perf 11/2023 she has now recovered appetite is fair, trying to change diet eating more fruit and veg she is taking probiotics drinking more water dysphagia is gone now she had ct in the ED also showing gallstones, non specific liver lesion sees oil in the stools EXAM: GENERAL: The patient is well developed and nontoxic. VITAL SIGNS:see workflow HEENT: Nonicteric sclerae, PERRLA, EOMI. Oropharynx clear. Moist mucous membranes. Conjunctivae appear well perfused. No thyroid mass. CHEST: Chest wall is nontender. HEART: Regular rate and rhythm without murmurs. LUNGS: Clear to auscultation bilaterally. ABDOMEN: Soft, positive bowel sounds, nontender, no organomegaly.no flank tenderness SKIN: No rash, no excessive bruising, petechiae, or purpura. NEUROLOGIC: Cranial nerves II-XII intact without motor/sensory deficit. Psych: normal affect A/P: 1/ Choking, dysphagia to meats--resolved now 2/ Diverticulitis, resolved 3/ non specific liver lesion Plan: 1/ MRI liver 2/ High fiber diet, avoid constipation, reviewed diet changes 3/ check stool elastase, fecal fat PFSH Medical History Esophageal stricture GERD (gastroesophageal reflux disease) Surgical History Hx of tubal ligation H/O bilateral breast reduction surgery History of hysterectomy Social History Household Members: Spouse, Significant Other and Family Housing: House Are you a primary healthcare associate to a significant other at home: No Do you presently have visiting nurse or other home services: No Patient Tobacco Use Status: Current everyday Tobacco user Tobacco use type: Cigarette Cigarette Packs Per Day: 0.33 Cigarettes Per Day: 6.6 Second Hand Smoke Exposure: No service: No Physical Exam Vital Signs: Last Vital Signs Pulse 75 12/17/23 12:27 BP 116/72 12/17/23 12:27 BMI result Body Mass Index 30.3 Assessment & Plan Assessment & Plan (1) Diverticulitis: Code(s): K57.92 - Diverticulitis of intestine, part unspecified, without perforation or abscess without bleeding Category: Medical Plan: A/P: 1/ Choking, dysphagia to meats--resolved now 2/ Diverticulitis, resolved 3/ non specific liver lesion Plan: 1/ MRI liver 2/ High fiber diet, avoid constipation, reviewed diet changes 3/ check stool elastase, fecal fat (2) Liver lesion, right lobe: Code(s): K76.9 - Liver disease, unspecified Category: Medical Plan: A/P: 1/ Choking, dysphagia to meats--resolved now 2/ Diverticulitis, resolved 3/ non specific liver lesion Plan: 1/ MRI liver 2/ High fiber diet, avoid constipation, reviewed diet changes 3/ check stool elastase, fecal fat (3) Malabsorption: Code(s): K90.9 - Intestinal malabsorption, unspecified Category: Medical Plan: A/P: 1/ Choking, dysphagia to meats--resolved now 2/ Diverticulitis, resolved 3/ non specific liver lesion Plan: 1/ MRI liver 2/ High fiber diet, avoid constipation, reviewed diet changes 3/ check stool elastase, fecal fat Orders: Orders MR abdomen wo/w con Today K57.92 - Diverticulitis of intestine, part unspecified, without perforation or abscess without bleeding, K76.9 - Liver disease, unspecified Fecal Fat Qualitative Today K90.9 - Intestinal malabsorption, unspecified Pancreatic Elastase-1 Today K90.9 - Intestinal malabsorption, unspecified Medications: New rifaximin 550 mg PO TID 2 weeks 42 tabs 0RF Refilled 2 amoxicillin-pot clavulanate 875-125 mg 1 tab PO Q12H 14 tabs 0RF Coding Level of Care Code Est Pt Level 3 (73651) Diagnoses Diverticulitis K57.92 Liver lesion, right lobe K76.9 Malabsorption K90.9
[2023-12-17 12:27] VITALS: BP 116/72; PULSE 75; BMI 30.3
== END 2023-12-17 12:55 | disposition home or self-care (01) ==
PROVIDERS: PCP Internal Medicine; Visit Provider Internal Medicine Gastroenterology
DX: K57.92 Diverticulitis of intestine, part unspecified, without perforation or abscess without bleeding (principal); K76.9 Liver disease, unspecified; K90.9 Intestinal malabsorption, unspecified
CPT/HCPCS: 99213

== ENCOUNTER → 2023-12-17 12:16 | Outpatient (BNVA) | payer OTHER, SELFPAY | PROVIDERS: PCP Internal Medicine; Visit Provider Internal Medicine Gastroenterology | DX: K57.92 Diverticulitis of intestine, part unspecified, without perforation or abscess without bleeding (principal); K76.9 Liver disease, unspecified; K90.9 Intestinal malabsorption, unspecified | CPT/HCPCS: 99212 ==

== ENCOUNTER 2024-01-05 09:04 | Outpatient (REF) | payer OTHER, SELFPAY ==
[2024-01-09 14:33] LABS: Fecal Fat Qualitative Normal (Normal)
[2024-01-14 19:43] LABS: Pancreatic Elastase-1 >500 mcg/g
== END 2024-01-05 09:05 | disposition home or self-care (01) ==
LOC: HO.LNP 09:04
PROVIDERS: Visit Provider Internal Medicine Gastroenterology
DX: K90.9 Intestinal malabsorption, unspecified (principal)
CPT/HCPCS: 82656; 82705

== ENCOUNTER 2024-01-14 14:47 | Outpatient (REF) | payer OTHER, SELFPAY ==
--- NOTE | ~2024-01-14 | MR_ITS ---
EXAMINATION: MR ABDOMEN WITHOUT AND WITH CONTRAST CLINICAL INFORMATION: Liver disease. Liver lesion. COMPARISON: Abdomen CT from 11/30/2023. TECHNIQUE: MR abdomen was performed without and with use of 8.5 mL intravenous Gadavist gadolinium contrast. Postcontrast images are performed in multiphase dynamic sequences. Imaging was performed in 3 planes on a high-field magnet. FINDINGS: LUNG BASES: Normal. No pulmonary consolidation or pleural effusion. Fibrocystic changes of the breast. 2.7 cm cyst is seen within the left breast on the coronal single shot fast spin-echo T2-weighted images. LIVER: Again noted is mild hepatomegaly with the right hepatic lobe measuring approximately 19 cm in craniocaudal dimension. No evidence of hepatic steatosis or cirrhosis. 1.5 cm lobulated T2 hyperintense focus within the anterior segment of the right hepatic lobe demonstrates a centripetal pattern of contrast opacification consistent with cavernous hemangioma. GALLBLADDER AND BILIARY TREE: Gallbladder remains distended (hydropic appearance) and measures 5.3 cm transverse dimension, similar compared to 11/30/2023. 1 cm stone is seen at the gallbladder neck. Query if there is any history of biliary colic. No gallbladder wall thickening or pericholecystic fluid. No intrahepatic or extrahepatic bile duct dilatation. PANCREAS: Normal. No edema, pancreatic ductal dilatation or mass. SPLEEN: Normal. ADRENAL GLANDS: Normal. KIDNEYS: Kidneys are normal in size and enhance symmetrically. No renal mass, hydronephrosis or perinephric edema. BOWEL AND PERITONEUM: Stomach is unremarkable. No dilated loops of bowel. No bowel wall thickening or mesenteric fat stranding. There are scattered diverticula of the colon. No abdominal free fluid. ABDOMINAL WALL: 1 cm cystic-appearing focus is present in the subcutaneous tissues near the periumbilical region of the abdominal wall. No abdominal wall hernia. VASCULATURE: Abdominal aorta is normal in caliber and its visualized branches are widely patent. Inferior vena cava is normal. LYMPH NODES: No pathologic sized lymph nodes in the abdomen. SKELETAL: No acute or suspicious osseous abnormality. There appear to be hemangiomas of the T11 and L1 vertebra. No suspicious osseous lesions. Mild dextroscoliosis of the mildly degenerated lumbar spine. MR/MR abdomen wo/w con IMPRESSION: * 1.5 cm cavernous hemangioma of the liver. * Gallbladder has a hydropic appearance, as noted on 11/30/2023, with presence of a 1 cm stone at the gallbladder neck. Consider possibility of gallbladder dysfunction due to presence of the stone and query whether patient has any symptoms from biliary colic. There is no imaging evidence of acute cholecystitis. * Multiple diverticula of the colon.
[2024-01-14] MEDS: gadobutroL 10 ML VIAL IVPUSH (15:48)
== END 2024-01-14 14:48 | disposition home or self-care (01) ==
LOC: HO.MRI 14:47
PROVIDERS: PCP Internal Medicine; Visit Provider Internal Medicine Gastroenterology
DX: K76.9 Liver disease, unspecified (principal); K57.92 Diverticulitis of intestine, part unspecified, without perforation or abscess without bleeding
CPT/HCPCS: 74183; A9585

== ENCOUNTER 2024-03-10 09:44 | Inpatient (IN) | payer OTHER, SELFPAY ==
--- NOTE | ~2024-03-10 | CT_ITS ---
EXAMINATION: CT ABDOMEN AND PELVIS WITH CONTRAST CLINICAL INFORMATION: Left-sided abdominal pain. COMPARISON: MRI abdomen 01/14/2024 TECHNIQUE: Multidetector volumetric images were obtained from the superior aspect of the liver through the pubic symphysis following administration 85 mL of Omnipaque 350 intravenous contrast. Sagittal and coronal reformatted images were obtained on the technologist's workstation. Oral contrast: No This CT examination was performed using dose optimization techniques as appropriate, variously including the following: *Automated exposure control *Adjustment of mA and/or kV according to patient size (this includes techniques or standardized protocols for targeted exams where dose is matched to indication/reason for exam; i.e. extremities or head) *Use of iterative reconstruction technique DLP: 723 mGy-cm FINDINGS: LUNG BASES: Small hiatal hernia. LIVER, GALLBLADDER, AND BILIARY TREE: The liver is normal in size and contour. Stable 1.1 cm hepatic hemangioma previously characterized. No biliary ductal dilatation is present. Stable gallbladder distention. No pericholecystic inflammatory changes. Gallstone in the gallbladder neck. PANCREAS: Unremarkable. SPLEEN: Unremarkable. ADRENAL GLANDS: Unremarkable. KIDNEYS AND URETERS: The kidneys are symmetric in size and enhancement. No suspicious renal mass. No hydronephrosis. No perinephric stranding. BLADDER: Unremarkable. GASTROINTESTINAL TRACT: Marked wall thickening of the mid sigmoid colon with pericolonic inflammatory changes. There is evidence of underlying diverticular disease and small free fluid in pelvis. Appendix is within normal limits. ABDOMINAL WALL: Small periumbilical nodule left midline measuring 0.7 x 1.4 cm. LYMPH NODES: Small retroperitoneal lymph nodes. VASCULAR: Normal caliber abdominal aorta. PELVIC VISCERA: Uterus is nonvisualized. OSSEOUS STRUCTURES: No destructive bone lesions. CT/CT abdomen pelvis w IV con IMPRESSION: Marked wall thickening of the sigmoid colon with pericolonic stranding. There is underlying diverticular disease. Fluid and phlegmon and extraluminal air without organized fluid collection. These findings most likely represent perforated acute diverticulitis. Stable hydropic gallbladder. Gallstone in the gallbladder neck. No surrounding inflammatory changes. Findings were reviewed and discussed with Bakari Walsh at 2:16 PM on 03/10/2024.
[2024-03-10 09:53] VITALS: BP 136/85; PULSE 89; RESP 18; TEMP 36.8; O2SAT 98; BMI 29.5
--- NOTE | 2024-03-10 10:39 | ED_ITS ---
HPI - Abdominal Pain General Chief Complaint: Abdominal Pain Stated Complaint: Diverticulitis Flare up Time Seen by Provider: 03/10/24 10:08 Source: patient Mode of arrival: ambulatory Limitations: no limitations History of Present Illness HPI narrative: This is told the patient presented to the emergency department with a left lower quadrant abdominal pain. She has history of diverticulitis she is concerned she may have diverticulitis. Denies any fever , she has some nausea vomiting and diarrhea. MD elicited complaint: abdominal pain Pertinent past history: diverticulitis Onset (ago): day(s) (3) Pain Consistency: constant Location: LLQ Severity: mild Quality: cramping Radiation: none Associated symptoms: nausea, vomiting and diarrhea Related Data Previous Rx's ?Medication ?Instructions ?Recorded pantoprazole 20 mg tablet,delayed 20 mg PO BID #28 tabs 08/18/23 release amoxicillin 875 mg-potassium 1 tab PO Q12H #14 tabs 12/17/23 clavulanate 125 mg tablet rifaximin 550 mg tablet 550 mg PO TID 2 weeks #42 tabs 12/17/23 Allergies Allergy/AdvReac Type Severity Reaction Status Date / Time No Known Allergies Allergy Verified 03/10/24 09:55 Review of Systems Constitutional: Reports no additional constitutional complaints Reports system reviewed and no additional complaints, except as documented Cardiovascular: Reports no additional cardiovascular complaints Gastrointestinal: Reports no additional gastrointestinal complaints PMFSH Past Medical History Attestation statement: The following information was validated with the patient. Source: unable to obtain Medical History Cholelithiasis Esophageal stricture GERD (gastroesophageal reflux disease) Surgical History Hx of tubal ligation H/O bilateral breast reduction surgery History of hysterectomy Social History Social History Household Members: Spouse, Significant Other and Family Housing: House Are you a primary physician primary care sports medicine to a significant other at home: No Do you presently have visiting nurse or other home services: No Patient Tobacco Use Status: Current everyday Tobacco user Tobacco use type: Cigarette Cigarette Packs Per Day: 0.33 Cigarettes Per Day: 6.6 Smoked in Last 30 Days: Yes Second Hand Smoke Exposure: No Use of substances other than those prescribed or required for medical reasons: No Advance Directives: No Advance Directives Information Provided: Yes Do you have a plan to hurt others: No Plan Patient : No service: No Physical Exam ED Vital Signs: Vital Signs - 24 hr 03/10/24 09:53 03/10/24 12:44 Temperature 98.2 F 98.2 F Pulse Rate 89 75 Respiratory Rate 18 14 Blood Pressure 136/85 101/62 Pulse Oximetry 98 99 Oxygen Delivery Method Room Air Room Air BMI result Body Mass Index 29.5 Const General: cooperative Nutritional Appearance: well nourished Orientation/consciousness: patient oriented x3 Limitations: no limitations HENMT Head: Yes normal to inspection Ears: hearing grossly normal bilaterally General nose exam: Normal external nose present Face and sinus: Yes normal facial exam Mouth: Normal oral and palatal mucosa present Neck Neck: Yes normal visual inspection and Yes full ROM Chest Chest palpation & inspection: normal inspection of the chest Resp Effort & Inspection: normal respiratory effort Auscultation: clear to auscultation bilaterally Cardio Jugular venous distension: no JVD Rate: regular rate Rhythm: regular rhythm GI Inspection: Yes normal to inspection Palpation (GI): Soft to palpation and Tenderness to palpation present (GI) in the LLQ Skin General skin exam: no rashes or lesions noted, elasticity normal and turgor normal Lesions: no lesions Neuro General: patient oriented x3 Course Reevaluation(s) Reevaluation #1: Case was d/w surgeon Dr Hall surgeon Time: 15:12 Medical Decision Making Medical Decision Making MDM Narrative: Patient presented with a left lower quadrant abdominal pain will obtain labs and ct Differential Diagnosis Differential Diagnoses: The differential diagnosis associated with the presentation includes Diverticulitis/colitis/bowel obstruction Admission/Observation Consideration of admission/observation: Escalation of care including admission/observation considered Consult Healthcare Provider Management of the patient was discussed with: Brom[employer] Equipment Operator surgeon Lab Data [facility] Lab Attestation statement: I reviewed the patient's lab results. 03/10/24 10:50 03/10/24 10:50 Labs: Lab Results 03/10/24 Range/Units 10:50 WBC 12.0 H (4.8-10.8) X10*3/uL RBC 4.17 L (4.20-5.50) X10*6/uL Hgb 12.8 (12.0-16.0) g/dl Hct 37.1 (37.0-47.0) % MCV 89.0 (80.0-98.0) fL MCH 30.7 (27.0-33.0) pg MCHC 34.5 (31.0-35.0) g/dl RDW 12.5 (11.0-16.0) % Plt Count 227 (160-400) X10*3/uL MPV 8.9 L (9.4-12.3) fL Immature Gran % (Auto) 0.3 (0.0-0.4) % Neut % (Auto) 75.7 H (45-73) % Lymph % (Auto) 17.3 L (20-40) % [place] % (Auto) 5.5 (2-11) % Eos % (Auto) 1.0 (0-4) % Baso % (Auto) 0.2 (0-2) % Lymph # (Auto) 2.1 (1.2-4.9) X10*3/uL [place] # (Auto) 0.7 (0.1-1.2) X10*3/uL Eos # (Auto) 0.1 (0.0-0.4) X10*3/uL Baso # (Auto) 0.0 (0.0-0.2) X10*3/uL Abs Immat Gran (auto) 0.04 H (0.00-0.03) X10*3/uL Absolute Neuts (auto) 9.1 H (2.0-8.3) x10*3/uL Absolute Nucleated RBC 0.000 (0.0-0.012) X10*3/uL Nucleated RBC % (auto) 0.0 (0.0-0.2) /100WBC Sodium 140 (135-145) mmol/L Potassium 3.8 (3.3-5.1) mmol/L Chloride 107 (96-108) mmol/L Carbon Dioxide 25 (22-29) mmol/L Anion Gap 12 (12-20) BUN 12 (9-16) mg/dL Creatinine 0.73 (0.5-1.4) mg/dL Estim Creat Clear Calc 104.6 Estimated GFR > 60 Random Glucose 104 (60-115) mg/dL Calcium 9.5 (8.4-10.2) mg/dL Total Bilirubin 0.3 (0.0-1.0) mg/dL AST 13 (5-31) U/L ALT 13 (0-31) U/L Alkaline Phosphatase 85 (39-117) U/L Total Protein 7.1 (6.5-8.0) g/dL Albumin 3.9 (3.5-5.0) g/dL Lipase 19 (8-78) U/L Beta HCG, Quant < 2 mIU/mL Radiology Impression Discussion of test interpretation with radiology: I discussed test interpretation with the radiologist and I have reviewed the radiologist's reading. Radiologist Impression: perf diverdiculitis Medications Administered Discontinued Medications Generic Name Dose Route Start Last Admin Trade Name Freq PRN Reason Stop Dose Admin Sodium Chloride 1,000 mls @ 999 mls/hr 03/10/24 10:45 03/10/24 12:11 Ns IVCONT 03/10/24 11:45 Infused .Q1H1M TERESA Infusion Iohexol 100 ml 03/10/24 11:52 03/10/24 11:53 Iohexol 350 Mg/Ml 100 Ml Infus..Btl IV 03/10/24 11:53 85 ml ONCE ONE Administration Ketorolac Tromethamine 15 mg 03/10/24 10:38 03/10/24 10:55 Ketorolac Tromethamine 15 Mg/Ml Vial IVPUSH 03/10/24 10:39 15 mg ONCE ONE Administration Oxycodone HCl 5 mg 03/10/24 12:22 03/10/24 12:35 Oxycodone Hcl Immed Release 5 Mg Tablet PO 03/10/24 12:23 5 mg ONCE ONE Administration Discharge Plan Discharge Clinical Impression: Diverticulitis of colon with perforation Patient Disposition: Admitted As Inpatient Print Language: Citizen Of [place]
[2024-03-10 10:54] LABS: MANUAL DIFF FLAG NO
[2024-03-10] MEDS: 0.9 % Sodium Chloride 1,000 ML 999 ML IVCONT ×2 (10:55→15:57)
[2024-03-10] MEDS: Ketorolac Tromethamine 15 MG/ML VIAL IVPUSH (10:55)
[2024-03-10 10:57] LABS: Basophils Percent Auto 0.2 % (0-2); Eosinophils Absolute Auto 0.1 X10*3/uL (0.0-0.4); Hematocrit 37.1 % (37.0-47.0); Hemoglobin 12.8 g/dl (12.0-16.0); Imm Gran Abs Auto 0.04 X10*3/uL (0.00-0.03); Imm Gran Pct Auto 0.3 % (0.0-0.4); Lymphocytes Absolute Auto 2.1 X10*3/uL (1.2-4.9); Lymphocytes Percent Auto 17.3 % (20-40); Mean Corpuscular HGB Conc 34.5 g/dl (31.0-35.0); Mean Corpuscular Hemoglobin 30.7 pg (27.0-33.0); Mean Platelet Volume 8.9 fL (9.4-12.3); Monocytes Absolute Auto 0.7 X10*3/uL (0.1-1.2); Monocytes Percent Auto 5.5 % (2-11); Neutrophils Absolute Auto 9.1 x10*3/uL (2.0-8.3); Neutrophils Percent Auto 75.7 % (45-73); Platelet Count 227 X10*3/uL (160-400); Red Blood Count 4.17 X10*6/uL (4.20-5.50); Red Cell Distribution Width 12.5 % (11.0-16.0)
[2024-03-10 11:17] LABS: Alanine Aminotransferase 13 U/L (0-31); Albumin Level 3.9 g/dL (3.5-5.0); Alkaline Phosphatase 85 U/L (39-117); Anion Gap 12 (12-20); Aspartate Amino Transferase 13 U/L (5-31); Bilirubin Total 0.3 mg/dL (0.0-1.0); Blood Urea Nitrogen 12 mg/dL (9-16); Calcium 9.5 mg/dL (8.4-10.2); Carbon Dioxide 25 mmol/L (22-29); Chloride 107 mmol/L (96-108); Creatinine Clr Calc Pharmacy 104.6; Estimated Glomerular Filt Rate > 60; Glucose Random 104 mg/dL (60-115); Lipase 19 U/L (8-78); Potassium 3.8 mmol/L (3.3-5.1); Sodium 140 mmol/L (135-145); Total Protein 7.1 g/dL (6.5-8.0)
[2024-03-10 11:23] LABS: HCG Quantitative < 2 mIU/mL
[2024-03-10] MEDS: iohexoL 350 MG/ML 100 ML INFUS..BTL IV (11:53)
[2024-03-10] MEDS: oxyCODONE HCl Immed Release 5 MG TABLET PO (12:35)
[2024-03-10 12:44] VITALS: BP 101/62; PULSE 75; RESP 14; TEMP 36.8; O2SAT 99
--- NOTE | 2024-03-10 15:08 | PM.HPGS ---
History of Present Illness History of Present Illness Date of Service: 03/11/24 Chief complaint: Abdominal pain Narrative: Isabel Dee is a 48 year old female known to the surgical service who in November had a flare up of divertiuclitis. She improved with conservative care and was seen post hositalization by Dr. Mota. She had a cscope with him not long ago which showed sig sigmoid diverticulitis. She noted that she had been doing well until this weekend when she wasnt feeling so well and had some vague abdominal pain and then had diarrhea and the pain got better but then worse. Denies fever. 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 She was tender in the lower abdomen and had an elevated white blood count and had a CT scan which showed sig diverticulitis with some free air and fluid consistent with perf tics. Review of Systems Review of Systems: Yes all other systems are reviewed and are negative PMFSH Past Medical History Medical History Cholelithiasis Esophageal stricture GERD (gastroesophageal reflux disease) Surgical History Surgical History Hx of tubal ligation H/O bilateral breast reduction surgery History of hysterectomy Social History Social History Household Members: Family Housing: House Are you a primary vocational childcare teacher to a significant other at home: No Do you presently have visiting nurse or other home services: No Patient Tobacco Use Status: Current everyday Tobacco user Tobacco use type: Cigarette Cigarette Packs Per Day: 0.4 Cigarettes Per Day: 8.0 Years Smoked: 29 Smoked in Last 30 Days: Yes Patient Interested in Nicotine Replacement: No Patient Given Instructions on How to Stop Smoking: No Second Hand Smoke Exposure: No Use of substances other than those prescribed or required for medical reasons: No Currently Displaying Signs/Symptoms of Drug Intoxication Withdrawal: No Have you been hit, kicked, punched, or otherwise hurt by someone within the past year? If so, by whom?: No Do you feel safe in your current relationship?: Yes Is there a partner from a previous relationship who is making you feel unsafe now?: No Are you made to feel afraid or neglected: No Advance Directives: No Advance Directives Information Provided: Yes Do you have a plan to hurt others: No Plan Recently lost weight without trying: No Nutrition Risks: No Nutritional Risk Patient : No : No Poor oral hygiene: No service: No Meds Allergies Allergy/AdvReac Type Severity Reaction Status Date / Time No Known Allergies Allergy Verified 03/10/24 09:55 Active Medications: Current Medications Sodium Chloride (Ns) 1,000 mls @ 999 mls/hr IVCONT .Q1H1M TERESA Stop: 03/10/24 15:30 Home Medications ?Medication ?Instructions ?Recorded ?Confirmed ?Last Taken ?Type pantoprazole 20 mg tablet,delayed 20 mg PO BID@0630,1630 03/10/24 03/10/24 1 Week Ago History release ~03/03/24 Physical Exam Vital Signs: Vital Signs: Last Vital Signs Temp 98.2 F 03/10/24 12:44 Pulse 75 03/10/24 12:44 Resp 14 03/10/24 12:44 BP 101/62 03/10/24 12:44 Pulse Ox 99 03/10/24 12:44 O2 Del Method Room Air 03/10/24 12:44 BMI result Body Mass Index 29.5 Const: General: cooperative, healthy appearing and acute distress mild Nutritional Appearance: average body habitus Orientation/consciousness: patient oriented x3 Resp: Effort & Inspection: normal respiratory effort and able to speak in complete sentences Cardio: Rate: regular rate Rhythm: regular rhythm GI: Other: soft tender left>right lower quadrant with guarding mild peritoneal signs active bowel sounds no masses Inspection: Yes normal to inspection Neuro: General: patient oriented x3 Extrem: General: Yes normal to inspection Psych: Appearance: grossly normal Mental Status: mental status grossly normal Results Results Labs: Short CBC 03/10/24 Range/Units 10:50 WBC 12.0 H (4.8-10.8) X10*3/uL Hgb 12.8 (12.0-16.0) g/dl Hct 37.1 (37.0-47.0) % Plt Count 227 (160-400) X10*3/uL BMP 03/10/24 10:50 Sodium 140 Potassium 3.8 Chloride 107 Carbon Dioxide 25 BUN 12 Creatinine 0.73 Calcium 9.5 Liver Function 03/10/24 Range/Units 10:50 Total Bilirubin 0.3 (0.0-1.0) mg/dL AST 13 (5-31) U/L ALT 13 (0-31) U/L Alkaline Phosphatase 85 (39-117) U/L Albumin 3.9 (3.5-5.0) g/dL Abdomen CT scan report/results: report reviewed CT scan - pelvis: report reviewed and image reviewed Additional studies: Chart - MEDITECH ? Diagnostics Subcategory All Activity ??:?? All Time ??:?? All Subcategories Filter Laboratory Imaging Microbiology Pathology Blood Bank Tests Cardiovascular Other Specialty DATE TYPE STATUS REF RANGE/AUTHOR Hx 03/10/24 11:55 Abdomen/Pelvis CT Signed Braulio Ballard 01/14/24 15:27 Abdomen MRI Signed Luke Whitaker 12/04/23 13:42 Mammogram Diagnostic Signed Ge Neville 12/04/23 13:42 Breast Ultrasound Signed Ge Neville 11/30/23 01:23 Abdomen/Pelvis CT Signed Kendrick Nelson 12/20/22 09:45 Barium Swallow X-Ray Signed Lloyd Lemon 11/30/22 13:34 Mammogram Diagnostic Signed Gus Christopher 05/30/22 14:47 Mammogram Diagnostic Signed Hernan Khan 11/25/21 11:10 Mammogram, Additional Views Signed Hernan Khan 11/21/21 15:50 Mammogram Screening Signed Hernan Khan 05/25/21 12:15 Pelvic/Transvag US Signed Jayda Lilly 11/16/20 09:00 Mammogram Screening Signed Hernan Khan Luz E Acute 48, F?1975 MRN#? [id number] ADM IN,?HO.S3??347?-1? 5ft 6in 182lb 15.739oz BSA: 1.97m? BMI: 29.5kg/m? Acc#? [id number] Full Code Historical Visits Allergies No Known Allergies Problems ? ONSET Diverticulitis of colon with perforation Malabsorption Liver lesion, right lobe Diverticulitis Diarrhea Choking due to food (regurgitated) Vital Signs 03/10/24 19:35 BP 113/84? Pulse 82? Resp 18? Temp 97.5 F? O2 Sat 95? Delivery Room Air? Home Meds Confirmed Prescription Monitoring Program MEDICATIONS (INSTRUCTIONS) LAST TAKEN Active amoxicillin 875 mg-potassium clavulanate 125 mg tablet 1 [id number] tabs 03/10/24 08:00 pantoprazole 20 mgPOBID@0630,1630 ~ 03/03/24 My Widget No Data to Display Diagnostics Reports Isabel Dee??48??F??1975 ? Allergy/Adv: No Known Allergies Close Abdomen/Pelvis CT (Signed) Braulio Ballard - 03/10/24 Abdomen MRI (Signed) Luke Whitaker - 01/14/24 Mammogram Diagnostic (Signed) Ge Neville - 12/04/23 Breast Ultrasound (Signed) Ge Neville - 12/04/23 Abdomen/Pelvis CT (Signed) Kendrick Nelson - 11/30/23 Barium Swallow X-Ray (Signed) Lloyd Lemon - 12/20/22 Mammogram Diagnostic (Signed) Gus Christopher - 11/30/22 Mammogram Diagnostic (Signed) Hernan Khan - 05/30/22 Mammogram, Additional Views (Signed) Hernan Khan - 11/25/21 Mammogram Screening (Signed) Hernan Khan - 11/21/21 Pelvic/Transvag US (Signed) Jayda Lilly - 05/25/21 Mammogram Screening (Signed) Hernan Khan - 11/16/20 Launch?Image [place] [id number] CT Scan Report Signed Patient: Isabel Dee MR#: [id number] : 1975 Acct:[id number] Age/Sex: 48 / F ADM Date: 03/10/24 Loc: HO.ED Attending Dr: Ordering Physician: Bakari Walsh MD Date of Service: 03/10/24 Procedure(s): CT abdomen pelvis w IV con Accession Number(s): [id number] cc: Bakari Walsh MD; Goldy Beard MD~ EXAMINATION: CT ABDOMEN AND PELVIS WITH CONTRAST CLINICAL INFORMATION: Left-sided abdominal pain. COMPARISON: MRI abdomen 01/14/2024 TECHNIQUE: Multidetector volumetric images were obtained from the superior aspect of the liver through the pubic symphysis following administration 85 mL of Omnipaque 350 intravenous contrast. Sagittal and coronal reformatted images were obtained on the technologist's workstation. Oral contrast: No This CT examination was performed using dose optimization techniques as appropriate, variously including the following: *Automated exposure control *Adjustment of mA and/or kV according to patient size (this includes techniques or standardized protocols for targeted exams where dose is matched to indication/reason for exam; i.e. extremities or head) *Use of iterative reconstruction technique DLP: 723 mGy-cm FINDINGS: LUNG BASES: Small hiatal hernia. LIVER, GALLBLADDER, AND BILIARY TREE: The liver is normal in size and contour. Stable 1.1 cm hepatic hemangioma previously characterized. No biliary ductal dilatation is present. Stable gallbladder distention. No pericholecystic inflammatory changes. Gallstone in the gallbladder neck. PANCREAS: Unremarkable. SPLEEN: Unremarkable. ADRENAL GLANDS: Unremarkable. KIDNEYS AND URETERS: The kidneys are symmetric in size and enhancement. No suspicious renal mass. No hydronephrosis. No perinephric stranding. BLADDER: Unremarkable. GASTROINTESTINAL TRACT: Marked wall thickening of the mid sigmoid colon with pericolonic inflammatory changes. There is evidence of underlying diverticular disease and small free fluid in pelvis. Appendix is within normal limits. ABDOMINAL WALL: Small periumbilical nodule left midline measuring 0.7 x 1.4 cm. LYMPH NODES: Small retroperitoneal lymph nodes. VASCULAR: Normal caliber abdominal aorta. PELVIC VISCERA: Uterus is nonvisualized. OSSEOUS STRUCTURES: No destructive bone lesions. CT/CT abdomen pelvis w IV con IMPRESSION: Marked wall thickening of the sigmoid colon with pericolonic stranding. There is underlying diverticular disease. Fluid and phlegmon and extraluminal air without organized fluid collection. These findings most likely represent perforated acute diverticulitis. Stable hydropic gallbladder. Gallstone in the gallbladder neck. No surrounding inflammatory changes. Findings were reviewed and discussed with Bakari Walsh at 2:16 PM on 03/10/2024. Dictated By: Braulio Ballard MD Signed By: <Electronically signed by Braulio Ballard MD in OV> 03/10/24 2742 DD/ 1155 TD/TT: Relationship Associate: Assessment and Plan (1) Diverticulitis of colon with perforation: Status: Acute Plan Pt with known diverticulitis in past and treated conservatively and now with localized perforation - she is tender but stable - she does not want surgery and feels like she can get better like she did last time. i discussed with her that she will need surgery either waty but that most likely would get an ostomy if emergency surgery were to be carried out. If she could improve without surgery she would still need to agree to an elective procedure in the near future and she is likely for a recurrrence sooner. I think its fair to give 24 hrs of npo, ivf, iv zosyn repeat labs and serial abdo exams. She understands that if she does not improve then she will need to undergo patrice urgent procedure. Will reeval in am. Total time managing care of this patient today: 55 minutes. Quality Stroke Does the patient have a stroke diagnosis?: No VTE Prior VTE?: No VTE Risk Level:: Surgical - low VTE Device Contraindication: N/A - Device Ordered VTE Drug Contraindication: Treatment Not Indicated Procedures Date of Service Date of Service: 03/11/24
--- NOTE | 2024-03-10 15:52 | PC.NURSE ---
no blood cultures to be drawn prior to abx administration
[2024-03-10] MEDS: Piperacillin Sodium/Tazobactam 3.375 GM in 0.9 % Sodium Chloride 50 ML IV ×2 (15:55→21:34)
[2024-03-10] MEDS: 0.9 % Sodium Chloride Flush 3 ML SYRINGE IVFLUSH ×2 (15:56→21:38)
--- NOTE | 2024-03-10 16:11 | PHA.MEDREC ---
Pharmacy Consult ? Medication Reconciliation Pharmacy has completed the medication reconciliation. Confirmed medications with patient. Patient states she started a Amoxicillin 875mg-potassium Clavulanate 125mg tab 1 tab Q12H on Thursday 03/08 for 7 days. She is on day 3 of it and she took it this morning at 8AM. She also states she was taking Pantoprazole 20mg but ran out of that script about a week ago and has no more refills for it.
[2024-03-10 16:40] VITALS: BP 129/71; PULSE 69; RESP 14; TEMP 36.8; O2SAT 98
[2024-03-10] MEDS: ondansetron HCL 4 MG/2 ML VIAL IVPUSH (16:56)
[2024-03-10] MEDS: Morphine Sulfate 4 MG/ML CARTRIDGE IVPUSH ×2 (16:56→22:03)
[2024-03-10 19:35] VITALS: BP 113/84; PULSE 82; RESP 18; TEMP 36.4; O2SAT 95
[2024-03-10 20:15] VITALS: BMI 29.5
[2024-03-11] MEDS: 0.9 % Sodium Chloride 1,000 ML 125 ML IVCONT ×4 (01:44→20:38)
[2024-03-11 03:48] VITALS: BP 103/55; PULSE 74; RESP 18; TEMP 36.3; O2SAT 98
[2024-03-11] MEDS: Piperacillin Sodium/Tazobactam 3.375 GM in 0.9 % Sodium Chloride 50 ML IV ×4 (04:09→21:39)
[2024-03-11 07:17] LABS: Anion Gap 10 (12-20); Blood Urea Nitrogen 9 mg/dL (9-16); Calcium 8.8 mg/dL (8.4-10.2); Carbon Dioxide 24 mmol/L (22-29); Chloride 109 mmol/L (96-108); Estimated Glomerular Filt Rate > 60; Glucose Random 96 mg/dL (60-115); Potassium 3.8 mmol/L (3.3-5.1); Sodium 139 mmol/L (135-145)
[2024-03-11 07:22] VITALS: BP 113/63; PULSE 75; RESP 16; TEMP 36.5; O2SAT 98
[2024-03-11 07:24] LABS: Hemoglobin 11.2 g/dl (12.0-16.0); Mean Corpuscular HGB Conc 33.9 g/dl (31.0-35.0); Mean Corpuscular Hemoglobin 30.5 pg (27.0-33.0); Mean Corpuscular Volume 89.9 fL (80.0-98.0); Mean Platelet Volume 9.8 fL (9.4-12.3); Platelet Count 232 X10*3/uL (160-400); Red Blood Count 3.67 X10*6/uL (4.20-5.50); Red Cell Distribution Width 12.5 % (11.0-16.0); White Blood Count 8.1 X10*3/uL (4.8-10.8)
--- NOTE | 2024-03-11 07:54 | PM.PNGS ---
Subjective Subjective Date of Service: 03/11/24 Interval history: Patient feeling a little better. Passing some flatus Physical Exam Vital Signs: Vital Signs: Last Vital Signs Temp 97.7 F 03/11/24 07:22 Pulse 75 03/11/24 07:22 Resp 16 03/11/24 07:22 BP 113/63 03/11/24 07:22 Pulse Ox 98 03/11/24 07:22 O2 Del Method Room Air 03/11/24 07:22 BMI result Body Mass Index 29.5 GI: Other: Abdomen is soft. Mild left lower quadrant tenderness. No evidence of any guarding, rebound, rigidity. Objective Data Active Medications Acetaminophen (Acetaminophen 325 Mg Tablet) 650 mg PO Q6H PRN PRN Reason: Pain, Mild (Pain Scale 1-3), fever or headache Calcium Carbonate (Calcium Carbonate 750 Mg Tab.Chew) 750 mg PO Q4H PRN PRN Reason: Heartburn Piperacillin Sod/Tazobactam (Sod 3.375 gm/ Sodium Chloride) 50 mls @ 100 mls/hr IV Q6H [facility] Last Infusion: 03/11/24 04:47 Dose: Infused Documented By: MERON Sodium Chloride (Ns) 1,000 mls @ 125 mls/hr IVCONT .Q8H [facility] Last Admin: 03/11/24 01:44 Dose: 125 mls/hr Documented By: MERON Magnesium Hydroxide (Milk Of Magnesia 30 Ml Oral.Susp) 30 ml PO DAILY PRN PRN Reason: Constipation Melatonin (Melatonin 3 Mg Tablet) 6 mg PO BEDTIME PRN PRN Reason: Insomnia Morphine Sulfate (Morphine Sulfate 4 Mg/Ml Cartridge) 4 mg IVPUSH RQ4H PRN; Protocol PRN Reason: Pain, Severe (Pain Scale 7-10) Last Admin: 03/10/24 22:03 Dose: 4 mg Documented By: MERON Ondansetron HCl (Ondansetron Hcl 4 Mg/2 Ml Vial) 4 mg IVPUSH Q6H PRN PRN Reason: Nausea and Vomiting Last Admin: 03/10/24 16:56 Dose: 4 mg Documented By: MARIJA Sodium Chloride (0.9 % Sodium Chloride Flush 3 Ml Syringe) 3 ml IVFLUSH QSHIFT [facility] Last Admin: 03/10/24 21:38 Dose: 3 ml Documented By: MERON Labs 03/11/24 05:27 03/11/24 05:27 Labs: Laboratory Results - last 24 hr 03/10/24 03/11/24 10:50 05:27 MCV 89.0 89.9 MCH 30.7 30.5 MCHC 34.5 33.9 RDW 12.5 12.5 Plt Count 227 232 MPV 8.9 L 9.8 Immature Gran % (Auto) 0.3 Neut % (Auto) 75.7 H Lymph % (Auto) 17.3 L [place] % (Auto) 5.5 Eos % (Auto) 1.0 Baso % (Auto) 0.2 Lymph # (Auto) 2.1 [place] # (Auto) 0.7 Eos # (Auto) 0.1 Baso # (Auto) 0.0 Abs Immat Gran (auto) 0.04 H Absolute Neuts (auto) 9.1 H Absolute Nucleated RBC 0.000 0.000 Nucleated RBC % (auto) 0.0 0.0 Anion Gap 12 10 L Estim Creat Clear Calc 104.6 106.0 Estimated GFR > 60 > 60 Random Glucose 104 96 Calcium 9.5 8.8 D Total Bilirubin 0.3 AST 13 ALT 13 Alkaline Phosphatase 85 Total Protein 7.1 Albumin 3.9 Lipase 19 Beta HCG, Quant < 2 Procedures Date of Service Date of Service: 03/11/24 Progress Note: A&P Assessment and plan (1) Diverticulitis of colon with perforation: Status: Acute Plan Slowly Advance diet as tolerated, out of bed, incentive spirometry, IV antibiotics Time Spent With Patient Time: Total time managing care of this patient today ____ minutes. Quality Stroke Does the patient have a stroke diagnosis?: No VTE Prior VTE?: No VTE Risk Level:: Surgical - low VTE Device Contraindication: N/A - Device Ordered VTE Drug Contraindication: Treatment Not Indicated
--- NOTE | 2024-03-11 08:00 | P.PNGS_ITS ---
Subjective Subjective Date of Service: 03/11/24 Interval history: Patient feels much improved this morning; stlll with mild left lower quadrant pain. No BM yet. Physical Exam 2 Vital Signs: Vital Signs: Last Vital Signs Temp 97.7 F 03/11/24 07:22 Pulse 75 03/11/24 07:22 Resp 16 03/11/24 07:22 BP 113/63 03/11/24 07:22 Pulse Ox 98 03/11/24 07:22 O2 Del Method Room Air 03/11/24 07:22 BMI result Body Mass Index 29.5 Const: General: no acute distress Nutritional Appearance: well nourished Orientation/consciousness: patient oriented x3 Limitations: no limitations Resp: Effort & Inspection: normal respiratory effort GI: Other: soft, non-distended, tender in the LLQ only; no rebound or guarding. Skin: General skin exam: no rashes or lesions noted Neuro: General: patient oriented x3 Extrem: General: Yes no clubbing, cyanosis or edema Objective Data Active Medications Acetaminophen (Acetaminophen 325 Mg Tablet) 650 mg PO Q6H PRN PRN Reason: Pain, Mild (Pain Scale 1-3), fever or headache Calcium Carbonate (Calcium Carbonate 750 Mg Tab.Chew) 750 mg PO Q4H PRN PRN Reason: Heartburn Piperacillin Sod/Tazobactam (Sod 3.375 gm/ Sodium Chloride) 50 mls @ 100 mls/hr IV Q6H [facility] Last Infusion: 03/11/24 04:47 Dose: Infused Documented By: MERON Sodium Chloride (Ns) 1,000 mls @ 125 mls/hr IVCONT .Q8H [facility] Last Admin: 03/11/24 01:44 Dose: 125 mls/hr Documented By: MERON Magnesium Hydroxide (Milk Of Magnesia 30 Ml Oral.Susp) 30 ml PO DAILY PRN PRN Reason: Constipation Melatonin (Melatonin 3 Mg Tablet) 6 mg PO BEDTIME PRN PRN Reason: Insomnia Morphine Sulfate (Morphine Sulfate 4 Mg/Ml Cartridge) 4 mg IVPUSH RQ4H PRN; Protocol PRN Reason: Pain, Severe (Pain Scale 7-10) Last Admin: 03/10/24 22:03 Dose: 4 mg Documented By: MERON Ondansetron HCl (Ondansetron Hcl 4 Mg/2 Ml Vial) 4 mg IVPUSH Q6H PRN PRN Reason: Nausea and Vomiting Last Admin: 03/10/24 16:56 Dose: 4 mg Documented By: MARIJA Sodium Chloride (0.9 % Sodium Chloride Flush 3 Ml Syringe) 3 ml IVFLUSH QSHIFT [facility] Last Admin: 03/10/24 21:38 Dose: 3 ml Documented By: ANNARISM Labs 03/11/24 05:27 03/11/24 05:27 Labs: Laboratory Results - last 24 hr 03/10/24 03/11/24 10:50 05:27 MCV 89.0 89.9 MCH 30.7 30.5 MCHC 34.5 33.9 RDW 12.5 12.5 Plt Count 227 232 MPV 8.9 L 9.8 Immature Gran % (Auto) 0.3 Neut % (Auto) 75.7 H Lymph % (Auto) 17.3 L [place] % (Auto) 5.5 Eos % (Auto) 1.0 Baso % (Auto) 0.2 Lymph # (Auto) 2.1 [place] # (Auto) 0.7 Eos # (Auto) 0.1 Baso # (Auto) 0.0 Abs Immat Gran (auto) 0.04 H Absolute Neuts (auto) 9.1 H Absolute Nucleated RBC 0.000 0.000 Nucleated RBC % (auto) 0.0 0.0 Anion Gap 12 10 L Estim Creat Clear Calc 104.6 106.0 Estimated GFR > 60 > 60 Random Glucose 104 96 Calcium 9.5 8.8 D Total Bilirubin 0.3 AST 13 ALT 13 Alkaline Phosphatase 85 Total Protein 7.1 Albumin 3.9 Lipase 19 Beta HCG, Quant < 2 Procedures Date of Service Date of Service: 03/11/24 Progress Note: A&P Assessment and plan (1) Diverticulitis of colon with perforation: Status: Acute Plan HD #2 diverticulitis with localized perf; overall much improved today. Continue IV antibiotics. Await return of bowel function. Plan to convert to po antibiotic prior to discharge Elective colectomy once acute infection resolved. Time Spent With Patient Time: Total time managing care of this patient today ____ minutes. Quality Stroke Does the patient have a stroke diagnosis?: No VTE Prior VTE?: No VTE Risk Level:: Surgical - low VTE Device Contraindication: N/A - Device Ordered VTE Drug Contraindication: Treatment Not Indicated
--- NOTE | 2024-03-11 10:53 | MHC.CM.PN ---
pt is independent and working will not need servies when dcd
[2024-03-11 15:33] VITALS: BP 114/70; PULSE 74; RESP 16; TEMP 36.4; O2SAT 100
[2024-03-11] MEDS: Acetaminophen 325 MG TABLET 650 MG PO (16:09)
[2024-03-11 19:22] VITALS: BP 114/75; PULSE 80; RESP 18; TEMP 36.6; O2SAT 98
[2024-03-11] MEDS: Morphine Sulfate 4 MG/ML CARTRIDGE IVPUSH (20:42)
[2024-03-12 03:06] VITALS: BP 101/56; PULSE 66; RESP 18; TEMP 36.7; O2SAT 97
[2024-03-12] MEDS: Piperacillin Sodium/Tazobactam 3.375 GM in 0.9 % Sodium Chloride 50 ML IV ×2 (04:06→10:57)
[2024-03-12] MEDS: 0.9 % Sodium Chloride 1,000 ML 125 ML IVCONT (04:08)
--- NOTE | 2024-03-12 07:30 | P.PNGS_ITS ---
Subjective Subjective Date of Service: 03/12/24 Interval history: Patient's symptoms much improved. She is hungry. She is passing some flatus.. White count 8.1 yesterday Physical Exam 2 Vital Signs: Vital Signs: Last Vital Signs Temp 98.0 F 03/12/24 03:06 Pulse 66 03/12/24 03:06 Resp 18 03/12/24 03:06 BP 101/56 L 03/12/24 03:06 Pulse Ox 97 03/12/24 03:06 O2 Del Method Room Air 03/12/24 03:06 BMI result Body Mass Index 29.5 GI: Other: Abdomen corpulent, soft. Much less lower abdominal tenderness. No evidence of any guarding, rebound, or rigidity. Objective Data Active Medications Acetaminophen (Acetaminophen 325 Mg Tablet) 650 mg PO Q6H PRN PRN Reason: Pain, Mild (Pain Scale 1-3), fever or headache Last Admin: 03/11/24 16:09 Dose: 650 mg Documented By: JUAN Calcium Carbonate (Calcium Carbonate 750 Mg Tab.Chew) 750 mg PO Q4H PRN PRN Reason: Heartburn Piperacillin Sod/Tazobactam (Sod 3.375 gm/ Sodium Chloride) 50 mls @ 100 mls/hr IV Q6H [facility] Last Infusion: 03/12/24 04:37 Dose: Infused Documented By: ASHWIN Sodium Chloride (Ns) 1,000 mls @ 125 mls/hr IVCONT .Q8H [facility] Last Admin: 03/12/24 04:08 Dose: 125 mls/hr Documented By: ASHWIN Magnesium Hydroxide (Milk Of Magnesia 30 Ml Oral.Susp) 30 ml PO DAILY PRN PRN Reason: Constipation Melatonin (Melatonin 3 Mg Tablet) 6 mg PO BEDTIME PRN PRN Reason: Insomnia Morphine Sulfate (Morphine Sulfate 4 Mg/Ml Cartridge) 4 mg IVPUSH RQ4H PRN; Protocol PRN Reason: Pain, Severe (Pain Scale 7-10) Last Admin: 03/11/24 20:42 Dose: 4 mg Documented By: ASHWIN Ondansetron HCl (Ondansetron Hcl 4 Mg/2 Ml Vial) 4 mg IVPUSH Q6H PRN PRN Reason: Nausea and Vomiting Last Admin: 03/10/24 16:56 Dose: 4 mg Documented By: MARIJA Sodium Chloride (0.9 % Sodium Chloride Flush 3 Ml Syringe) 3 ml IVFLUSH QSHIFT [facility] Last Admin: 03/11/24 21:43 Dose: Not Given Documented By: ASHWIN Non-Admin Reason: IV Running Labs 03/11/24 05:27 03/11/24 05:27 Procedures Date of Service Date of Service: 03/12/24 Progress Note: A&P Assessment and plan (1) Diverticulitis of colon with perforation: Status: Acute Plan Advanced diet, Hep-Lock IV, consider DC home later today with dietary instructions and p.o. antibiotics. Time Spent With Patient Time: Total time managing care of this patient today ____ minutes. Quality Stroke Does the patient have a stroke diagnosis?: No VTE Prior VTE?: No VTE Risk Level:: Surgical - low VTE Device Contraindication: N/A - Device Ordered VTE Drug Contraindication: Treatment Not Indicated
[2024-03-12 07:32] VITALS: BP 116/74; PULSE 64; RESP 16; TEMP 36; O2SAT 97
[2024-03-12] MEDS: 0.9 % Sodium Chloride Flush 3 ML SYRINGE IVFLUSH (08:31)
--- NOTE | 2024-03-12 12:42 | MHC.CM.PN ---
pt dcd home self care
--- NOTE | 2024-03-12 14:38 | P.DS_ITS ---
DS: Providers Provider Date of Service: 03/12/24 Date of admission: 03/10/24 15:16 Date of discharge: 03/12/24 Primary care physician: Goldy Beard MD Attending physician on admission: Sandrita Salas Attending physician on discharge: Azam Dozier DS: Diagnosis Discharge Diagnosis (1) Diverticulitis of colon with perforation: Status: Acute DS: Summary Hospital Course Hospital Course: HPI AT ADMISSION: Isabel Dee is a 48 year old female known to the surgical service who in November had a flare up of divertiuclitis. She improved with conservative care and was seen post hositalization by Dr. Mota. She had a cscope with him not long ago which showed sig sigmoid diverticulitis. She noted that she had been doing well until this weekend when she wasnt feeling so well and had some vague abdominal pain and then had diarrhea and the pain got better but then worse. Denies fever. 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 She was tender in the lower abdomen and had an elevated white blood count and had a CT scan which showed sig diverticulitis with some free air and fluid consistent with localized perforation. HOSPITAL COURSE: She was admitted to the surgical service for further treatment of the acute diverticulitis. She was overall clinically appearing well with a benign abdomen and wanted to avoid surgery acutely. She was kept NPO and on IVF and started on IVF. She had improvement with nonoperative measures and these were continued. Her WBC count normalized. Her diet was slowly advanced. On the day of discharge, she was asymptomatic and tolerating a solid diet without worsening of pain, and had good GI function. Her abdomen was benign with no tenderness. She was discharged to home on 03/12/24 in stable condition on a course of PO cipro and flagyl. She is to follow up in the office to discuss elective sigmoid resection once this acute episode resolves. Status at Discharge Functional status at discharge: independent ambulation Overall status at discharge: patient is back to baseline Time Attestation Discharge Coordination Time (in mins): 30 Quality: Safe Use of Opioids Does Pt have an Active Cancer Diagnosis on the Problem List?: No Quality: Stroke Does the patient have a stroke diagnosis?: No Physical Exam Vital Signs: Vital Signs: Last Vital Signs Temp 96.8 F 03/12/24 07:32 Pulse 64 03/12/24 07:32 Resp 16 03/12/24 07:32 BP 116/74 03/12/24 07:32 Pulse Ox 97 03/12/24 07:32 O2 Del Method Room Air 03/12/24 07:32 BMI result Body Mass Index 29.5 Discharge Plan Discharge Anticipated Discharge Date/Time: 03/12/24 15:08 Patient Disposition: Home, Self-Care Discharge Diagnosis: Diverticulitis Referrals: Azam Dozier MD [Physician] - 1 Week Goldy Beard MD [Primary Care Provider] - 1 Week Discharge Medications: New ciprofloxacin HCl [Cipro] 500 mg tablet 500 mg PO BID Qty: 14 0RF metronidazole [Flagyl] 375 mg capsule 375 mg PO BID Qty: 14 0RF hydrocodone-acetaminophen 5-325 mg tablet 1 tab PO Q4-6H PRN (Reason: pain) Qty: 20 0RF Rx Instructions: Partial Fill upon patient request. Continued pantoprazole 20 mg tablet,delayed release (DR/EC) 20 mg PO BID@0630,1630 Discontinued amoxicillin-pot clavulanate 875-125 mg tablet 1 tab PO Q12H Qty: 14 0RF Discharge Orders: Discharge Order (Routine); Ordered 03/12/24 Ordered By: Shell Ventura Diet: Advance to usual diet Activity on Discharge: No heavy lifting Stand Alone Forms: Patient Portal Discharge page, Work/School Release Print Language: Romanian Care Plan Goals: Returned to baseline Health Concerns: No new issues Plan of Treatment: Convalescence Assessment: Stable Discharge Date/Time: 03/12/24 14:04
== END 2024-03-12 14:04 | disposition home or self-care (01) | DRG 244 ==
LOC: HO.ED 15:11 → HO.EDOVER 15:24 → HO.S3 17:16
PROVIDERS: Admitting Provider Surgery; Emergency Provider Emergency Medicine; PCP Internal Medicine; Visit Provider Surgery
DX: K57.20 Diverticulitis of large intestine with perforation and abscess without bleeding (principal); F17.210 Nicotine dependence, cigarettes, uncomplicated; Z71.6 Tobacco abuse counseling; Z79.899 Other long term (current) drug therapy
CPT/HCPCS: 36415; 74177; 80048; 80053; 83690; 84702; 85025; 85027; 99285; J1885; J2270; J2405; J2543; Q9967

== ENCOUNTER → 2024-03-10 15:16 | Outpatient (BNV) | payer OTHER, SELFPAY | PROVIDERS: Admitting Provider Surgery; Emergency Provider Emergency Medicine; PCP Internal Medicine; Visit Provider Surgery | DX: K57.20 Diverticulitis of large intestine with perforation and abscess without bleeding (principal) | CPT/HCPCS: 99222; 99232; 99499 ==

== ENCOUNTER 2024-03-24 13:16 | Outpatient (AMB) | payer OTHER, SELFPAY ==
--- NOTE | 2024-03-24 13:23 | A.OFFVIS_ITS ---
Vital Signs 03/24/24 13:26 Height 5 ft 6 in Weight 186 lb 2 oz BMI 30.0 BP 136/77 Blood Pressure Location Lt brachial Position Sitting Pulse 85 Intake Visit Reasons: abdominal pain Intake Note: Patient is seen in office for ER follow up visit, following abdominal pain. 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 She has had a longstanding history and at least 2 hospitalizations for this along with several outpatient bouts. At present her symptoms are markedly improved. She is tolerating a diet. Having regular bowel habits. Patient had colonoscopy approximately 6 months ago here at [place]. [facility] Medical History Cholelithiasis Esophageal stricture GERD (gastroesophageal reflux disease) Surgical History Hx of tubal ligation H/O bilateral breast reduction surgery History of hysterectomy Social History Household Members: Family Housing: House Are you a primary rental boats caretaker to a significant other at home: No Do you presently have visiting nurse or other home services: No Patient Tobacco Use Status: Current everyday Tobacco user Tobacco use type: Cigarette Cigarette Packs Per Day: 0.4 Cigarettes Per Day: 8.0 Years Smoked: 29 Second Hand Smoke Exposure: No service: No Physical Exam Vital Signs: Last Vital Signs Pulse 85 03/24/24 13:26 BP 136/77 03/24/24 13:26 BMI result Body Mass Index 30.0 Chest Other: Chest breath sounds bilaterally, HS 1 in 2 GI Other: Abdomen mildly corpulent, soft, benign. 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 The concern is that 1 of these bouts may end up with significant perforation requiring emergency surgery was temporary colostomy. Patient states her father had perforated diverticulitis requiring ostomy and she does not wished have this happened to her. She would much prefer to have an elective resection. Risks, benefits, and alternatives of sigmoid resection with primary anastomosis were reviewed with the patient and included but not limited to bleeding, infection, recurrence of symptoms, numbness, pain, scarring, temporary ostomy and the patient wishes to proceed. All questions answered. Patient will have a full bowel prep with antibiotics day prior. Arrangements were made for this. 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 Coding Level of Care Code Est Pt Level 5 (21503) Diagnoses Diverticular disease of left colon K57.30
[2024-03-24 13:26] VITALS: BP 136/77; PULSE 85
== END 2024-03-24 13:47 | disposition home or self-care (01) ==
PROVIDERS: PCP Internal Medicine; Visit Provider Surgery
DX: K57.30 Diverticulosis of large intestine without perforation or abscess without bleeding (principal)
CPT/HCPCS: 99215

== ENCOUNTER → 2024-03-24 13:16 | Outpatient (BNVA) | payer OTHER, SELFPAY | PROVIDERS: PCP Internal Medicine; Visit Provider Surgery | DX: K57.30 Diverticulosis of large intestine without perforation or abscess without bleeding (principal) | CPT/HCPCS: 99212 ==

== ENCOUNTER 2024-04-09 09:02 | Outpatient (AMB) | payer OTHER, SELFPAY ==
--- NOTE | 2024-04-09 09:04 | MHC.OFFVIS ---
Vital Signs 04/09/24 09:04 Height 5 ft 6 in Weight 186 lb 2.004 oz BMI 30.0 Intake Visit Reasons: 2nd opinion sigmoid resection Intake Note: This patient presents for 2nd opinion sigmoid resection . Pt c/o; reports today I feel a little weird . Manager Fine Dining Required: No Accompanied by: Self / Same As Patient Allergies No Known Allergies Allergy (Verified 04/09/24 09:11) Medication List - Last Reconciled 04/09/24 by Colin Charles MD Lactobacillus acidophilus (Probiotic) 10,000 mmu cells PO DAILY multivitamin 1 tab PO DAILY pantoprazole 40 mg PO DAILY HPI HPI 2nd opinion sigmoid resection : Details: [age] year old female here for follow-up for her history of diverticulitis. She was actually admitted to the hospital for acute diverticulitis with a microperforation and contain air last 03/10/2024. She was discharged after 2 hospital days. She has been doing well since that time She also says that she may have had an episode of diverticulitis last November,. She says she feels well in between this episodes She had a colonoscopy showing diverticulosis with erythema of the sigmoid last August,. Currently she feels well. She has good oral intake and has good bowel movements. She says she has had no abdominal pain for a month now. [facility] Medical History Cholelithiasis Esophageal stricture GERD (gastroesophageal reflux disease) Surgical History Hx of tubal ligation H/O bilateral breast reduction surgery History of hysterectomy Social History Household Members: Family Housing: House Are you a primary physician primary care sports medicine to a significant other at home: No Do you presently have visiting nurse or other home services: No Patient Tobacco Use Status: Current everyday Tobacco user Tobacco use type: Cigarette Cigarette Packs Per Day: 0.4 Cigarettes Per Day: 8.0 Years Smoked: 29 Second Hand Smoke Exposure: No service: No Review of Systems Const Denies chills and Denies fever(s) Card Denies chest pain, Denies dyspnea and Denies dyspnea on exertion Resp Denies cough, Denies dyspnea and Denies dyspnea on exertion GI Denies hematochezia and Denies change in bowel habits Denies hematuria Musc Denies back pain and Denies limited range of motion Neuro Denies focal weakness and Denies convulsions Psych Denies depression and Denies mood swings Physical Exam Vital Signs: BMI result Body Mass Index 30.0 Const General: comfortable and no acute distress Orientation/consciousness: patient oriented x3 Neck Neck: Yes no lymphadenopathy Resp Auscultation: clear to auscultation bilaterally Cardio Rhythm: regular rhythm GI Palpation (GI): Soft to palpation, nontender and no guarding Neuro General: patient oriented x3 Assessment & Plan Assessment & Plan (1) Diverticular disease of left colon: Code(s): K57.30 - Diverticulosis of large intestine without perforation or abscess without bleeding Category: Medical Plan: She has had at least 2 episodes of diverticulitis managed with IV antibiotics. She actually had some microperforation showing contained air in the pelvis last February, She had been scheduled by Dr. Dozier for sigmoid resection. However, she says she starts school this week and wanted to hold off on this. She says she feels well overall and feels that she can wait for her next school break for her surgery. I did explain to her that there is always a chance that she may have another episode of diverticulitis. Furthermore, in a severe episode, she may even require emergency laparotomy. I reviewed with her the technique of sigmoid resection, and the possible need for diverting stoma. I reviewed the risks including but not limited to bleeding, infections, staple line leak, injury to other organs, blood clots, pneumonia, as well as the benefits and alternatives. I also explained to her what to expect postoperatively She says she would like to hold off on this surgery for now but we will see me in July to review this again. Coding Level of Care Code Est Pt Level 3 (29474) Diagnoses Diverticular disease of left colon K57.30
== END 2024-04-09 09:27 | disposition home or self-care (01) ==
PROVIDERS: PCP Internal Medicine; Visit Provider Surgery
DX: K57.30 Diverticulosis of large intestine without perforation or abscess without bleeding (principal)
CPT/HCPCS: 99213

== ENCOUNTER → 2024-04-09 09:02 | Outpatient (BNVA) | payer OTHER, SELFPAY | PROVIDERS: PCP Internal Medicine; Visit Provider Surgery | DX: K57.30 Diverticulosis of large intestine without perforation or abscess without bleeding (principal); R10.9 Unspecified abdominal pain | CPT/HCPCS: 99212 ==

== ENCOUNTER 2024-06-30 11:38 | Outpatient (AMB) | payer OTHER, SELFPAY ==
--- NOTE | 2024-06-30 11:41 | A.OFFVIS_ITS ---
Vital Signs 06/30/24 11:42 Height 5 ft 6 in Weight 184 lb BMI 29.7 BP 128/65 Blood Pressure Location Lt brachial Position Sitting Pulse 78 Intake Visit Reasons: 6 month follow up Intake Note: Isabel presents in the office as a 6 month follow up. CC: She states that she caNcelled her procedure. Lube Attendant Required: No Allergies No Known Allergies Allergy (Verified 06/30/24 11:42) HPI HPI 6 month follow up: Details: 48 yr old patient being called for f/u for dysphagia and choking RECAP: Has issues with choking and dysphagia for years can happen with thick meats, steak, has occ heartburn she says her GB does not work and she has diarrhea she denies melena or diarrhea her weight is stable she never had egd or colonoscopy Ba swallow: Indentation of posterior cervical esophageal wall from ventral spondylosis C6-C7 disc level but no obstruction. Small sliding hiatal hernia. EGD/[facility] 09/05 Endoscopy Findings: hiatal hernia duodenitis erosive esophagitis Colonoscopy Findings: polyp internal hemorrhoids diverticular disease SCAD Path: SSA, H pylori Reflux changes she had diverticulitis and micro perf 11/2023--awaiting surgery INTERIM: Swallowing is good no more attacks of diverticulitis since 03/05 taking stool softener and benefiber appetite is good no nausea EXAM: GENERAL: The patient is well developed and nontoxic. VITAL SIGNS:see workflow HEENT: Nonicteric sclerae, PERRLA, EOMI. Oropharynx clear. Moist mucous membranes. Conjunctivae appear well perfused. No thyroid mass. CHEST: Chest wall is nontender. HEART: Regular rate and rhythm without murmurs. LUNGS: Clear to auscultation bilaterally. ABDOMEN: Soft, positive bowel sounds, nontender, no organomegaly.no flank te nderness SKIN: No rash, no excessive bruising, petechiae, or purpura. NEUROLOGIC: Cranial nerves II-XII intact without motor/sensory deficit. Psych: normal affect A/P: 1/ Choking, dysphagia to meats--resolved now 2/ Diverticulitis, resolved-- awaiting surgery due to hx of micro perfs 3/ MRI liver, hemangioma 4/ gallstones, asymptomatic right now Plan: 1/ cont with soft softener 2/ she is following for thyroid issues as well 3/ cont with PPI and take MV with vit D 4/ discussed weight loss treatments, she wants to hold on these for the moment [facility] Medical History Cholelithiasis Esophageal stricture GERD (gastroesophageal reflux disease) Surgical History Hx of tubal ligation H/O bilateral breast reduction surgery History of hysterectomy Social History Household Members: Family Housing: House Are you a primary emergency care attendant to a significant other at home: No Do you presently have visiting nurse or other home services: No Patient Tobacco Use Status: Current everyday Tobacco user Tobacco use type: Cigarette Cigarette Packs Per Day: 0.4 Cigarettes Per Day: 8.0 Years Smoked: 29 Second Hand Smoke Exposure: No service: No Physical Exam Vital Signs: Last Vital Signs Pulse 78 06/30/24 11:42 BP 128/65 06/30/24 11:42 BMI result Body Mass Index 29.7 Assessment & Plan Assessment & Plan (1) Diverticular disease of left colon: Code(s): K57.30 - Diverticulosis of large intestine without perforation or abscess without bleeding Category: Medical Plan: see above Coding Level of Care Code Est Pt Level 3 (70331) Diagnoses Diverticular disease of left colon K57.30
[2024-06-30 11:42] VITALS: BP 128/65; PULSE 78; BMI 29.7
== END 2024-06-30 12:49 | disposition home or self-care (01) ==
PROVIDERS: PCP Internal Medicine; Visit Provider Internal Medicine Gastroenterology
DX: K57.30 Diverticulosis of large intestine without perforation or abscess without bleeding (principal)
CPT/HCPCS: 99213

== ENCOUNTER → 2024-06-30 11:38 | Outpatient (BNVA) | payer OTHER, SELFPAY | PROVIDERS: PCP Internal Medicine; Visit Provider Internal Medicine Gastroenterology | DX: K57.30 Diverticulosis of large intestine without perforation or abscess without bleeding (principal); R13.10 Dysphagia, unspecified | CPT/HCPCS: 99212 ==

== ENCOUNTER 2024-07-30 12:48 | Outpatient (AMB) | payer OTHER, SELFPAY ==
--- NOTE | 2024-07-30 12:59 | MHC.OFFVIS ---
Vital Signs 07/30/24 13:06 Height 5 ft 6 in Weight 192 lb BMI 31.0 BP 132/84 Blood Pressure Location Lt brachial Position Sitting Pulse 77 Intake Visit Reasons: follow up visit sigmoid resection Intake Note: This patient presents for follow up visit and discuss possible hemorrhoidectomy. Pt c/o; has not had any recent flare ups Log Data Technician Required: No Accompanied by: Self / Same As Patient Allergies No Known Allergies Allergy (Verified 07/30/24 12:59) Medication List - Last Reconciled 07/30/24 by Colin Charles MD cholecalciferol (vitamin D3) 10 mcg PO DAILY colostrum, bovine (Colostrum Prime Life) mg PO Lactobacillus acidophilus (Probiotic) 10,000 mmu cells PO DAILY multivitamin 1 tab PO DAILY pantoprazole 40 mg PO DAILY ubidecarenone-omega 3-vit E 25-150-200 mg-mg-unit (Co [id number] E-Fish Oil) 1 cap PO DAILY HPI HPI follow up visit sigmoid resection : Details: She is here for follow-up for diverticular disease. She says she has had no episodes for the past 4-5 months. She feels well overall. She has good oral intake. He has been trying to lose some weight as well. [facility]LY [facility] Medical History Cholelithiasis Esophageal stricture GERD (gastroesophageal reflux disease) Surgical History Hx of tubal ligation H/O bilateral breast reduction surgery History of hysterectomy Social History Household Members: Family Housing: House Are you a primary career services officer to a significant other at home: No Do you presently have visiting nurse or other home services: No Patient Tobacco Use Status: Current everyday Tobacco user Tobacco use type: Cigarette Cigarette Packs Per Day: 0.4 Cigarettes Per Day: 8.0 Years Smoked: 29 Second Hand Smoke Exposure: No service: No Review of Systems Const Denies chills and Denies fever(s) Card Denies chest pain, Denies dyspnea and Denies dyspnea on exertion Resp Denies cough, Denies dyspnea and Denies dyspnea on exertion GI Denies hematochezia and Denies change in bowel habits Denies hematuria Musc Denies back pain and Denies limited range of motion Neuro Denies focal weakness and Denies convulsions Psych Denies depression and Denies mood swings Physical Exam Vital Signs: Last Vital Signs Pulse 77 07/30/24 13:06 BP 132/84 07/30/24 13:06 BMI result Body Mass Index 31.0 Const General: comfortable and no acute distress Resp Effort & Inspection: normal respiratory effort Cardio Rate: regular rate GI Palpation (GI): Soft to palpation, not firm, nontender and no guarding Assessment & Plan Assessment & Plan (1) Diverticular disease of left colon: Code(s): K57.30 - Diverticulosis of large intestine without perforation or abscess without bleeding Category: Medical Plan: She continues to do very well. She has had no episodes Again, I had a long discussion with her about the option of proceeding with sigmoid resection in view of her multiple episodes in the past. 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 She says that she is trying to hold off on surgery for now for least interruption of her disease She does understand that there is always the risk of recurrent cyst episodes of diverticulitis. She does state that she has thinking about eventually having the surgery but would like to hold off because of school at this time. She says she will come back to the office on a p.r.n. basis. I had a long talk with her about the benefits of weight loss. Coding Level of Care Code Est Pt Level 3 (64185) Diagnoses Diverticular disease of left colon K57.30
[2024-07-30 13:06] VITALS: BP 132/84; PULSE 77; BMI 31.0
== END 2024-07-30 13:25 | disposition home or self-care (01) ==
PROVIDERS: PCP Internal Medicine; Visit Provider Surgery
DX: K57.30 Diverticulosis of large intestine without perforation or abscess without bleeding (principal)
CPT/HCPCS: 99213

== ENCOUNTER → 2024-07-30 12:48 | Outpatient (BNVA) | payer OTHER, SELFPAY | PROVIDERS: PCP Internal Medicine; Visit Provider Surgery | DX: K57.30 Diverticulosis of large intestine without perforation or abscess without bleeding (principal) | CPT/HCPCS: 99212 ==

== ENCOUNTER 2024-12-08 12:16 | Outpatient (REF) | payer OTHER, SELFPAY ==
--- OUTSIDE RECORDS SUMMARY | 2024-12-08 14:39 | XMS_ITS | Encounter Summary ---
Author Organization [facility] Address [address] [place] [address] Care Team Providers Care Vest Busheler Name Role Phone Goldy Beard MD Primary Care Provider [phone] Reason for Visit * Reason Onset Date Comments Orders Call 12/04/2023 Encounter Details Date Type Department Care Team Description 12/04/2023 Telephone Adult Medicine [facility] [address] [place] [address] Goldy Beard MD [address] [place] [address] Orders Call Social History Tobacco Use Types Packs/Day Years Used Date Smoking Tobacco: Every Day Cigarettes 0.3 25 Smokeless Tobacco: Current Alcohol Use Standard Drinks/Week Comments Yes 0 (1 standard drink = 0.6 oz pur e alcohol) occ Sex Assigned at Date Recorded Not on file Job Start Date Occupation Industry Not on file Not on file Not on file documented as of this encounter Miscellaneous Notes * Telephone Encounter - Angeline Doc Goddard - 12/05/2023 12:33 PM EDT Pt. States she went to the Hospital ER on 11/29 for abd. Pain she was admitted . Dx with diverticulitis and microperforation she received IV antibiotics in hospital and was discharged with by mouth antibiotics . She states she is feeling much better and only has a twinge when sitting a certain way. Pt. Has apt. With gastro on 12/16 and I advised her to call that office to inform them she was in the hospital , I made follow up apt. And advised pt. If any problems or questions to call office back orif she develops abd. Pain , fever,cp, sob or weakness to be evaluated in the ER. Pt. agrees documented in this encounter Plan of Treatment Not on file documented as of this encounter Visit Diagnoses Not on filedocumented in this encounter Care Teams Vest Busheler Relationship Specialty Start Date End Date Goldy Beard MD [address] [place] [address] PCP - General Internal Medicine 05/26/22 documented as of this encounter
--- OUTSIDE RECORDS SUMMARY | 2024-12-08 14:39 | XMS_ITS | Clinical Summary ---
Author Organization [facility] Address [address] [place] [address] Care Team Providers Care Bi Tester Name Role Phone Goldy Beard MD Primary Care Provider [phone] Allergies No known active allergies Medications Medication Sig Dispensed Refills Start Date End Date Status pantoprazole (PROTONIX) 40 MG tablet Take 1 Tablet by mouth daily. 0 03/27/2024 Active Probiotic Product (PROBIOTIC OR) Take by mouth. 0 Active Docusate Sodium (COLACE OR) Take by mouth. 0 Active Active Problems Problem Noted Date Obesity (BMI 30-39.9) 04/10/2024 Thyroid nodule 11/29/2020 Overview: Stable and benign appearing most recent thyroid ultrasound from November 2020 less than 1 cm. Iron deficiency anemia 11/18/2018 GERD (gastroesophageal reflux disease) 0 10/14/2018 Cholelithiasis 10/14/2018 Tobacco use 10/14/2018 Resolved Problems Problem Noted Date Resolved Date Hyperlipidemia 04/10/2024 04/10/2024 PCB (post coital bleeding) 07/22/201911/26 Cervicitis with nabothian cyst 07/22/2019 0 10/14/2019 Goiter 10/14/2018 11/29/2020 Immunizations Name Administration Dates Next Due COVID-19 (Pfizer) 02/12/2020 COVID-19 (Pfizer) Pt Reported 08/23/2020 TD (STATE SUPPLIED FOR ADULTS AND CHILDREN) 11/2018 Tdap 01/16/2007 Family History Medical History Relation Name Comments CAD Father Diabetes Father htn, diverticul itis with colostomy Hypertension Father Diabetes Mother htn Hypertension Mother Asthma Son CA Breast Negative Hx CA Colon Negative Hx CA Ovarian Negative Hx Cancer of the Pancreas Negative Hx Cancer of the Prostate Negative Hx Uterine Cancer Negative Hx Relation Name Status Comments Father Mother Son Social History Tobacco Use Types Packs/Day Years Used Date Smoking Tobacco: Every Day Cigarettes 0.3 25 Smokeless Tobacco: Current Tobacco Cessation:Ready to Q uit: Not Asked; Counseling Given: Not Answered Alcohol Use Standard Drinks/Week Comments Yes 0 (1 standard drink = 0.6 oz pur e alcohol) occ Sex Assigned at Date Recorded Not on file Job Start Date Occupation Industry Not on file Not on file Not on file Last Filed Vital Signs Vital Sign Reading Time Taken Comments Blood Pressure 100/60 04/10/2024 10:25 AM EDT Pulse 83 04/10/2024 10:25 AM EDT Temperature 36.7 ??C (98 ??F) 04/10/2024 10:25 AM EDT Respiratory Rate 12 04/10/2024 10:25 AM EDT Oxygen Saturation 98% 04/10/2024 10:25 AM EDT Inhaled Oxygen Concentration - - Weight 84.4 kg (186 lb) 04/10/2024 10:25 AM EDT Height 167.6 cm (5' 6 ) 04/10/2024 10:25 AM EDT Body Mass Index 30.02 04/10/2024 10:25 AM EDT Plan of Treatment Health Maintenance Due Date Last Done Comments CERVICAL CANCER SCREENING 07/22/2022 07/22/2019, Covid-19 Vaccine (2022-09 4 season) 2024 08/23/2020, 02/12/2020 TOBACCO CHECK/ADVISE 08/04/2024 08/04/2022, 08/04/2022, 06/16/2021, Additional history exists BMI CHECK/ADVISE 08/13/2024 04/10/2024, , 06/15/2023, Additional history exists MAMMOGRAM 12/03/2024 12/04/2023, 11/12, 05/02/2022 (External Completion), Additional history exists INFLUENZA (Season Ended) 2025 BASELINE HEALTH EXAM 40-64 06/15/202506/15, 06/15/2023, 08/17/2022, Additional history exists DTAP/TDAP/TD (3 - Td or Tdap) 10/14/2028 10/14/2018, 01/16/2007 CHOLESTEROL SCREENING 04/03/2029 04/03/2024 , 10/23/2023, 07/13/2023, Additional history exists PNEUMOCOCCAL VACCINE FOR HIG H RISK PATIENTS (#1) 2042 Care Teams Bi Tester Relationship Specialty Start Date End Date Goldy Beard MD [address] [place] [address] PCP - General Internal Medicine 05/26/22
--- OUTSIDE RECORDS SUMMARY | 2024-12-08 14:39 | XMS_ITS | Encounter Summary ---
Author Organization [facility] Address [address] [place] [address] Care Team Providers Care Bookmobile Librarian Name Role Phone Goldy Beard MD Primary Care Provider [phone] Encounter Details Date Type Department Care Team Description 08/27/2023 Orders Only Medical Records [address] [place] [address] Salas Mota MD Social History Tobacco Use Types Packs/Day Years Used Date Smoking Tobacco: Every Day Cigarettes 0.3 25 Smokeless Tobacco: Current Alcohol Use Standard Drinks/Week Comments Yes 0 (1 standard drink = 0.6 oz pur e alcohol) occ Sex Assigned at Date Recorded Not on file Job Start Date Occupation Industry Not on file Not on file Not on file documented as of this encounter Plan of Treatment Not on file documented as of this encounter Procedures Procedure Name Priority Date/Time Associated Diagnosis Comments OUTSIDE COLONOSCOPY Routine 08/16/2023 documented in this encounter Results * OUTSIDE COLONOSCOPY (08/16/2023) Salas Mota MD RADIOLOGY documented in this encounter Visit Diagnoses Not on filedocumented in this encounter Care Teams Bookmobile Librarian Relationship Specialty Start Date End Date Goldy Beard MD [address] [place] [address] PCP - General Internal Medicine 05/26/22 documented as of this encounter
--- OUTSIDE RECORDS SUMMARY | 2024-12-08 14:39 | XMS_ITS | Encounter Summary ---
Author Organization [facility] Address [address] [place] [address] Care Team Providers Care Relish Maker Name Role Phone Bev Amaro MD Primary Care Provider Unavail able Ernesto Campbell Primary Care Provider [phone] Goldy Beard MD Primary Care Provider [phone] Encounter Details Date Type Department Care Team Description 10/16/2018 Release of Information Medical Records [address] [place] [address] Abstract, Provider Social History Tobacco Use Types Packs/Day Years Used Date Smoking Tobacco: Every Day Cigarettes 0.5 25 Smokeless Tobacco: Current Alcohol Use Standard [...] on filedocumented in this encounter Care Teams Relish Maker Relationship Specialty Start Date End Date Bev Amaro MD PCP - General Internal Medicine 09/20/18 11/24/21 Ernesto Campbell [address] [place] [id number] PCP - General Internal Medicine 11/25/21 05/25/22 Goldy Beard MD [address] [place] [id number] PCP - General Internal Medicine 05/26/22 documented as of this encounter
--- OUTSIDE RECORDS SUMMARY | 2024-12-08 14:39 | XMS_ITS | Encounter Summary ---
Author Organization [facility] Address [address] [place] [address] Care Team Providers Care Attic Fans Mechanic Name Role Phone Goldy Beard MD Primary Care Provider [phone] Encounter Details Date Type Department Care Team Description 01/04/2024 Orders Only Medical Records [address] [place] [address] [facility] Social History Tobacco Use Types Packs/Day Years [...] Name Priority Date/Time Associated Diagnosis Comments OUTSIDE ULTRASOUND Routine 12/04/[address] Routine 2023 OUTSIDE LAB Routine 2023 documented in this encounter Results * OUTSIDE ULTRASOUND (12/04/2023) Goldy Beard MD RADIOLOGY * OUTSIDE CT (2023) [facility] RADIOLOGY * OUTSIDE LAB (2023) [facility] documented in this encounter Visit Diagnoses Not on filedocumented in this encounter Care Teams Attic Fans Mechanic Relationship Specialty Start Date End Date Goldy Beard MD [address] [place] [address] PCP - General Internal Medicine 05/26/22 documented as of this encounter
--- OUTSIDE RECORDS SUMMARY | 2024-12-08 14:39 | XMS_ITS | Encounter Summary ---
Author Organization [facility] Address [address] [place] [address] Care Team Providers Care Medical Claims Assistant Name Role Phone Bev Amaro MD Primary Care Provider Unavail able Ernesto Campbell Primary Care Provider [phone] Goldy Beard MD Primary Care Provider [phone] Encounter Details Date Type Department Care Team Description 07/22/2019 Telephone [facility] - [address] [address] Roberto Mullins MD Social History Tobacco Use Types Packs/Day [...] encounter Miscellaneous Notes * Telephone Encounter - Lisa Conde - 07/28/2019 11:27 AM EST Davinci total abdominal hyterectomy with BSO has been scheduled on 09/29/2019 at [facility] with Dr. Roberto Mullins. Patient has been notified by phone and a letter has been sent to her. MD sousahas been updated and schedulers have been notified. TV * Telephone Encounter - Lisa Conde - 07/23/2019 9:27 AM EST Called and spoke with patient offered a surgical date of 09/29/2019. Pt accepts date will forward paperwork to [facility]. * Telephone Encounter - Roberto Mullins MD - 07/22/2019 5:34 PM EST AIR TECHNICIAN SURGICAL BOOKING WORKSHEET 07/22/2019 Patient's Name: Isabel Dee : 1975 Payor information: Payor: [facility] / Plan: [facility] TYPE II $10/$18 / Product Type: HMO [id number] Allergies: No Known Allergies LMP: No LMP recorded. Diagnosis: 1. PCB (post coital bleeding) 2. Cervicitis with nabothian cyst Surgery Procedure Planned: da Terence total hysterectomy with bilateral salpingectomy Special Instructions/Equipment needed: da Terence Type of Anesthesia: general Stay: Outpatient in a bed Location:[facility] Trailer Truck Driver Needed? YES Time Needed: 3 hours Urgency: elective Medicaid Sterilization (within 30 days - 180 days) and/or Medicare HI-1 form signed, if needed? N\ADate signed? Medical Clearance? NO Pre Op LOADING MACHINE OPERATOR visit: YES Pap Needed at Pre Op Visit? NO No orders of the defined types were placed in this encounter. documented in this encounter Plan of Treatment Not on file documented as of this encounter Visit Diagnoses Diagnosis PCB (post coital bleeding)- Primary Postcoital bleeding Cervicitis with nabothian cyst documented in this encounter Care Teams Medical Claims Assistant Relationship Specialty Start Date End Date Bev Amaro MD PCP - General Internal Medicine 09/20/18 11/24/21 Ernesto Campbell [address] [place] [address] PCP - General Internal Medicine 11/25/21 05/25/22 Goldy Beard MD [address] [place] [id number] PCP - General Internal Medicine 05/26/22 documented as of this encounter
--- OUTSIDE RECORDS SUMMARY | 2024-12-08 14:39 | XMS_ITS | Clinical Summary ---
Author Organization [address] Address [address] [place] [phone] Phone Care Team Providers Care Mechanical Piping Designer Name Role Phone Goldy Beard MD Primary Care Provider Allergies No known active allergies Medications pantoprazole (PROTONIX) 40 mg EC tablet Take 1 tablet (40 mg total) by mouth 1 (one) time each day. 90 tablet 1 08/20/2024 Active multivitamin with minerals tablet Take 1 tablet by mouth 1 (one) time each day. Active lactobacillus acidoph-l.bulgar 100 million cell granules in packet Take 1 packet by mouth. Active Active Problems Problem Noted Date Diagnosed Date Obesity (BMI 30-39.9) 04/10/2024 Thyroid nodule 11/29/2020 Overview (05/22/2024): Stable and benign appearing most recent thyroid ultrasound from November 2020 less than 1 cm. Iron deficiency anemia 11/18/2018 Cholelithiasis 10/14/2018 GERD (gastroesophageal reflux disease) 9 Encounters Date Type Department Care Team Description 10/13/2024 3:45 PM EST Consult General Surgery - [address] [place] [address] Masood Joyner MD Thyroid nodule from Last 3 Months Immunizations Name Administration Dates Next Due HepB-CpG (Heplisav-B) 18yo and older 12/28/2022, 11/28/2022 Influenza trivalent, MDCK, 0 .5mL, preservative free (Flucelvax) 6mo and older 04/14/2024 Pfizer SARS-CoV-2 COVID-19, mRNA, LNP-S, preservative free 02/12/2020 Td Tetanus diptheria (Tdvax) 7yo and older 10/14 Tdap Tetanus diptheria acell ular pertussis (Boostrix; Adacel) 7yo and older 01/16/2007 Surgical History Surgery Date Site/Laterality Comments TUBAL LIGATION PROCEDURE: HISTORICAL TUBAL LIGATION BREAST REDUCTION 2012 PROCEDURE: VT BREAST REDUCTION OTHER SURGICAL HISTORY PROCEDURE: VT TOTAL ABDOMINAL HYSTERECT W/WO RMVL TUBE OVARY Medical History Medical History Date Comments GERD (gastroesophageal reflux disease) DX:GERD (gastroesophageal reflux disease) Hyperlipidemia 04/10/2024 DX:Hyperlipidemi a Family History Medical History Relation Name Comments Coronary artery disease Father Diabetes Father htn, diverticul itis with colostomy Hypertension Father Diabetes Mother htn Hypertension Mother Asthma Son Breast cancer Neg Hx Colon cancer Neg Hx Ovarian cancer Neg Hx Pancreatic cancer Neg Hx Prostate cancer Neg Hx Uterine cancer Neg Hx Relation Name Status Comments Father Mother Son Social History Tobacco Use Types Packs/Day Years Used Date Smoking Tobacco: Every Day Cigarettes Smokeless Tobacco: Current Alcohol Use Standard Drinks/Week Comments Yes 0 (1 standard drink = 0.6 oz pur e alcohol) Housing Instability Answer Date Recorde d Are you worried that in the next 2 months you may not have stable housing? No 08/20/2024 Food Access & Nutrition Answer Date Rec orded Do you have access to a vari ety of food including fruits and vegetables? Yes 08/20/2024 Access to Healthcare Answer Date Record ed Within the last 3 months, ho w many times did you visit the emergency department for your medical care? 0 08/20/2024 Health Literacy Answer Date Recorded How often do you need to hav e someone help you when you read instructions, pamphlets, or other written material from your doctor or pharmacy? Never 08/20/2024 Caregiver: How often do you need to have someone help you when you read instructions, pamphlets, or other written material from your doctor or pharmacy? Not on file 08/20/2024 Financial Risk Answer Date Recorded How hard is it for you to pa y for the very basics like food, housing, medical care, and air conditioning / heating? Not very hard 08/20/2024 Transportation Answer Date Recorded Has the lack of transportati on kept you from meetings, work, or from getting things needed for daily living? No Has the lack of transportati on kept you from medical appointments or from getting medications? No 08/20/2024 Social Isolation Answer Date Recorded How often do you feel lonely or isolated from th ose around you? Never 08/20/2024 Food Risk Answer Date Recorded Within the past 12 months we worried whether our food would run out before we got money to buy more. Never true 08/20/2024 Within the past 12 months th e food we bought just didn't last and we didn't have money to get more. Never true 08/20/2024 Dependent Care Answer Date Recorded Do you need help finding or paying for care for your loved ones. For example, child caregiver private home or elderly care for an older adult? No 08/20/2024 Education Answer Date Recorded Do you think completing more education or training, like finishing a GED, going to college, or learning a trade, would be helpful for you? No 08/20/2024 Employment and Income Answer Date Recor ded During the last four weeks, have you been actively looking for work? No 08/20/2024 Living Situation Answer Date Recorded What is your living situation? 0 08/20/2024 Comments Unknown Sex and Gender Information Value Date Recorded Sex Assigned at Not on file Legal Sex Female 9:51 AM EST Gender Identity Not on file Sexual Orientation Not on file Obstetrics History Last Filed Vital Signs Vital Sign Reading Time Taken Comments Blood Pressure 127/85 10/13/2024 3:31 PM EST Pulse 77 10/13/2024 3:31 PM EST Temperature 36.4 ??C (97.6 ??F) 08/20/2024 1:48 PM ES T Respiratory Rate 16 08/20/2024 1:48 PM EST Oxygen Saturation 97% 08/20/2024 1:48 PM EST Inhaled Oxygen Concentration - - Weight 88.3 kg (194 lb 9.6 oz) 10/13/2024 3:31 P M EST Height 167.6 cm (5' 6 ) 10/13/2024 3:31 PM EST Body Mass Index 31.41 10/13/2024 3:31 PM EST Plan of Treatment Health Maintenance Due Date Last Done Comments Cervical Cancer Screening: Pap Smear 07/22/2022 07/22/2019, 06/12/2019 Depression Screening 08/20/2025 08/20/2024 Social Influencers of Health Screening 08/20/2025 08/20/2024 Breast Cancer Screening 12/03/2025 12/04/2023 DTaP,Tdap,and Td Vaccines (3 - Td or Tdap) 10/14/2028 10/14/2018, 01/16/2007 Cholesterol Screening (Lipid Panel) 08/20/2029 08/20/2024, 04/03/2024 Colorectal Cancer Screening: Colonoscopy 08/15/2033 08/15/2023 COVID-19 Vaccine Discontinued 08/23/2020, 02/12/2020 Hepatitis B Vaccines Completed 12/28/2022, 11/28/2022 Influenza Vaccine Completed 04/14/2024 Hepatitis C Screening Completed 08/20/2024 HIB Vaccines Aged Out No longer eligi ble based on patient's age to complete this topic HIV Screening Discontinued HPV Vaccines Aged Out No longer eligi ble based on patient's age to complete this topic Hepatitis A Vaccines Aged Out No long er eligible based on patient's age to complete this topic IPV Vaccines Aged Out No longer eligi ble based on patient's age to complete this topic MMR Vaccines Aged Out No longer eligi ble based on patient's age to complete this topic Meningococcal ACWY Vaccine Aged Out N o longer eligible based on patient's age to complete this topic Meningococcal B Vaccine Aged Out No l onger eligible based on patient's age to complete this topic Pneumococcal Vaccine: Pediatrics (0 to 5 Years) and At-Risk Patients (6 to 64 Years) Discontinued RSV Immunization Patients Under 20 months Aged Out No longer eligible based on patient's age to complete this topic Varicella Vaccines Aged Out No longer eligible based on patient's age to complete this topic Procedures Procedure Name Priority Date/Time Associated Diagnosis Comments HEPATITIS C ANTIBODY Routine 08/20/2024 2:28 PM EST Need for hepatitis C screening test LIPID PANEL WITH REFLEX TO DIRECT LDL Routine 08/20/2024 2:28 PM EST Encounter for screening for cardiovascular disorders PAP SMEAR Routine 07/22/2019 from Last 3 Months or Most Recently Relevant to Health Maintenance Results * Hepatitis C antibody (08/20/2024 2:28 PM EST) [facility] Hepatitis C Antibody Negative Negative LAB CHEMISTRY METHOD 08/20/2024 5:59 PM EST [facility] Blood Venous blood specimen / Unknown Venipuncture / Unknown 08/20/2024 2:28 PM EST 08/20/2024 2:28 PM EST Dorothy Mcclellan SOUND EFFECTS MANAGER LAB BLOOD ORDERABLES Final R esult [facility] [address] [place] [address], [place] [phone] * Lipid panel with reflex to direct LDL (08/20/2024 2:28 PM EST) [facility] Cholesterol 175 0 - 200 mg/dL LAB CHEMISTRY METHOD 08/20/2024 5:09 PM [facility] Triglycerides 136 0 - 150 mg/dL LAB CHEMISTRY METHOD 08/20/2024 5:09 PM [facility] HDL 49 >=40 mg/dL LAB CHEMISTRY METHOD 08/20/2024 5:09 PM [facility] LDL Calculated 99 0 - 100 mg/dL LAB CHEMISTRY METHOD 08/20/2024 5:09 PM [facility] VLDL Cholesterol James 27.2 mg/dL LAB CHEMISTRY METHOD 08/20/2024 5:09 PM [facility] Non HDL Chol. (LDL+VLDL) 126 <145 mg/dL LAB CHEMISTRY METHOD 08/20/2024 5:09 PM [facility] Chol/HDL Ratio 3.6 0.0 - 4.4 LAB CHEMISTRY METHOD 08/20/2024 5:09 PM [facility] Blood Venous blood specimen / Unknown Venipuncture / Unknown 08/20/2024 2:28 PM EST 08/20/2024 2:28 PM EST Dorothy Mcclellan SOUND EFFECTS MANAGER LAB BLOOD ORDERABLES Final R esult [facility] [address] [place] [address], * Pap smear (07/22/2019) 07/22/2019 Narrative HISTORICAL TESTING LAB RESULTING AGENCY - 08/12/2019 12:01 PM EST [id number] THINPREP PAP, IMAGED AND CELL BLOCK: UNSATISFACTORY SPECIMEN FOR MORPHOLOGIC EVALUATION DUE TO INSUFFICIENT SQUAMOUS CELLULARITY. ABUNDANT BLOOD PRESENT. NOTE : DUE TO THE LIMITED SQUAMOUS CELLULARITY, THE NEGATIVE HPV TEST MAY REPRESENT A FALSE NEGATIVE RESULT. ZAKIA MARIA(ASCP) (CASE SCREENED 07 28 2019) UGY CALVERT M.D. , PATHOLOGIST (CASE ELECTRONICALLY SIGNED 08 11 2019) RESULT OF APTIMA HIGH RISK HPV ASSAY: HIGH RISK HPV: ??NEGATIVE (SEROTYPES 16,18,31,33,35,39,45,51,52,56,58,59,66,68) COMPLETED ON 2019-07-23 ADEQUACY: UNSATISFACTORY ENDOCERVICAL/TRANSFORMATION ZONE COMPONENT PRESENT. SOURCE: THINPREP PAP HPV ANY DX: ??REFLEX 16 AND 18, CERVICAL, IMAGED CLINICAL INFORMATION: HPV ANY DIAGNOSIS. Z12.4, LMP 05/16/2019, PAP HX NEGATIVE CB 07/24/19 us Roberto Simon MD LAB CYTOLOGY ORDERABLES Final R esult HISTORICAL TESTING LAB RESULTING AGENCY from Last 3 Months or Most Recently Relevant to Health Maintenance Insurance [facility] PUBLIC PLANS MEDICAID - [place] Care Teams Mechanical Piping Designer Relationship Specialty Start Date End Date Goldy Beard MD [address] [place] [address] PCP - General Internal Medicine 05/26/22
--- OUTSIDE RECORDS SUMMARY | 2024-12-08 14:39 | XMS_ITS | Encounter Summary ---
Author Organization [facility] Address [address] [place] [address] Care Team Providers Care Environmental Issues Instructor Name Role Phone Harsha Amaro MD Primary Care Provider Unavail able Ernesto Campbell Primary Care Provider [phone] Goldy Beard MD Primary Care Provider [phone] Reason for Visit * Reason Onset Date Comments Real Estate Office Manager Feedback 06/06/2021 ILEANA CRONIN Encounter Details Date Type Department Care Team Description 06/06/2021 Telephone OBGYN - [place] [address], [place] [id number] Ileana Katz MD [address], [place] [phone] Real Estate Office Manager Feedback (ILEANA KATZ) Social History Tobacco Use Types Packs/Day Years Used Date Smoking Tobacco: Every Day Cigarettes 0.5 25 Smokeless Tobacco: Current Alcohol Use Standard Drinks/Week Comments Yes 0 (1 standard drink = 0.6 oz pur e alcohol) occ Sex Assigned at Date Recorded Not on file Job Start Date Occupation Industry Not on file Not on file Not on file COVID-19 Exposure Response Date Recorded In the last month, have you been in contact with someone who was confirmed or suspected to have Coronavirus / COVID-19? No / Unsure 06/07/2021 12:25 PM EDT documented as of this encounter Miscellaneous Notes * Telephone Encounter - Cari Mott - 06/06/2021 2:20 PM EDT Auth Number #[id number] Visits 11 Start 06/07/2021-06/07/2022 Provider ILEANA KATZ * Telephone Encounter - Melissa Mayo - 06/06/2021 12:20 PM EDT Request for a referral to a [facility] Specialist for a patient with a [facility] PCP. If patient does NOT have a [facility]h PCP they must obtain a referral from their PCP before being seen-do not submit request to Referrals department-contact patient. Specialty patient is being referred to: sewer digger Name of Specialist patient is seeing: Dr Katz Reason/diagnosis for visit: ovarian cyst Date of appoinment: 06/07/21 If retro, date referral needs to start: 06/07/21 HARSHA AMARO Payor: [facility] [employer] PLAN / Plan: [facility] TYPE II $10/$18 / Product Type: HMO [id number] documented in this encounter Plan of Treatment Not on file documented as of this encounter Visit Diagnoses Not on filedocumented in this encounter Care Teams Environmental Issues Instructor Relationship Specialty Start Date End Date Harsha Amaro MD PCP - General Internal Medicine 09/20/18 11/24/21 Ernesto Campbell [address] [place] [address] PCP - General Internal Medicine 11/25/21 05/25/22 Goldy Beard MD [address] [place] [address] PCP - General Internal Medicine 05/26/22 documented as of this encounter
--- OUTSIDE RECORDS SUMMARY | 2024-12-08 14:39 | XMS_ITS | Encounter Summary ---
Author Organization [facility] Address [address] [place] [address] Care Team Providers Care Legal Instruments Examiner Name Role Phone Goldy Beard MD Primary Care Provider [phone] Encounter Details Date Type Department Care Team Description 07/16/2023 Oracle Database Administrator Report Medical Records [address] [place] [address] Salas Mota MD Social History Tobacco Use [...] on filedocumented in this encounter Care Teams Legal Instruments Examiner Relationship Specialty Start Date End Date Goldy Beard MD [address], [place] [phone] PCP - General Internal Medicine 05/26/22 documented as of this encounter
== END 2024-12-08 12:17 | disposition home or self-care (01) ==
LOC: HO.MAMMO 12:16
PROVIDERS: PCP Internal Medicine; Visit Provider Internal Medicine
DX: Z12.31 Encounter for screening mammogram for malignant neoplasm of breast (principal)
CPT/HCPCS: 77063; 77067

== ENCOUNTER → 2024-12-08 12:30 | Outpatient (BNV) | payer OTHER, SELFPAY | PROVIDERS: PCP Internal Medicine; Visit Provider Internal Medicine | DX: Z12.31 Encounter for screening mammogram for malignant neoplasm of breast (principal) | CPT/HCPCS: 77063; 77067 ==

== ENCOUNTER 2025-06-29 09:46 | Outpatient (AMB) | payer OTHER, SELFPAY ==
--- NOTE | 2025-06-29 09:53 | A.OFFVIS_ITS ---
Vital Signs 06/29/25 09:55 Height 5 ft 6 in Weight 189 lb 9.561 oz BMI 30.6 BP 137/60 Blood Pressure Location Lt brachial Position Sitting Pulse 80 Intake Visit Reasons: 1 year f/u Intake Note: Isabel presents in the office as a 1 year follow up. CC: States that she has been feeling okay! Tower Switch Operator Required: No Allergies No Known Allergies Allergy (Verified 07/30/24 12:59) HPI HPI 1 year f/u : Details: 49 yr old patient being seen for f/u for dysphagia and choking RECAP: Has issues with choking and dysphagia for years can happen with thick meats, steak, has occ heartburn she says her GB does not work and she has diarrhea she denies melena or diarrhea her weight is stable she never had egd or colonoscopy Ba swallow: Indentation of posterior cervical esophageal wall from ventral spondylosis C6-C7 disc level but no obstruction. Small sliding hiatal hernia. EGD/[place] 09/05 Endoscopy Findings: hiatal hernia duodenitis erosive esophagitis Colonoscopy Findings: polyp internal hemorrhoids diverticular disease SCAD Path: SSA, H pylori Reflux changes she had diverticulitis and micro perf 11/2023- INTERIM: No further attacks of diverticulitis since 03/05 taking stool softener and benefiber, probiotics Swallowing is good, may get choking if eats too quick appetite is good no nausea EXAM: GENERAL: The patient is well developed and nontoxic. VITAL SIGNS:see workflow HEENT: Nonicteric sclerae, PERRLA, EOMI. Oropharynx clear. Moist mucous membranes. Conjunctivae appear well perfused. No thyroid mass. CHEST: Chest wall is nontender. HEART: Regular rate and rhythm without murmurs. LUNGS: Clear to auscultation bilaterally. ABDOMEN: Soft, positive bowel sounds, nontender, no organomegaly.no flank tenderness SKIN: No rash, no excessive bruising, petechiae, or purpura. NEUROLOGIC: Cranial nerves II-XII intact without motor/sensory deficit. Psych: normal affect A/P: 1/ Choking, dysphagia to meats--resolved now 2/ Diverticulitis, resolved-- she is holding off on surgery 3/ MRI liver, hemangioma 4/ gallstones, asymptomatic right now Plan: 1/ cont with soft softener , fiber 2/ work on weight loss 3/ cont with PPI and take MV with vit D f/u prn PFSH Medical History Cholelithiasis Esophageal stricture GERD (gastroesophageal reflux disease) Surgical History (Updated 06/29/25 @ 09:56 by JUDY Silveira) Hx of colonoscopy History of esophagogastroduodenoscopy (EGD) Hx of tubal ligation H/O bilateral breast reduction surgery History of hysterectomy Social History Household Members: Family Housing: House Are you a primary after school caregiver to a significant other at home: No Do you presently have visiting nurse or other home services: No Patient Tobacco Use Status: Current everyday Tobacco user Tobacco use type: Cigarette Cigarette Packs Per Day: 0.4 Cigarettes Per Day: 8.0 Years Smoked: 29 Second Hand Smoke Exposure: No service: No Physical Exam Vital Signs: Last Vital Signs Pulse 80 06/29/25 09:55 BP 137/60 06/29/25 09:55 BMI result Body Mass Index 30.6 Assessment & Plan Assessment & Plan (1) Diverticulitis: Code(s): K57.92 - Diverticulitis of intestine, part unspecified, without perforation or abscess without bleeding Category: Medical Plan: as above Coding Level of Care Code Est Pt Level 3 (30168) Diagnoses Diverticulitis K57.92
[2025-06-29 09:55] VITALS: BP 137/60; PULSE 80; BMI 30.6
== END 2025-06-29 10:44 | disposition home or self-care (01) ==
LOC: HO.HGI 09:47
PROVIDERS: PCP Internal Medicine; Visit Provider Internal Medicine Gastroenterology
DX: K57.92 Diverticulitis of intestine, part unspecified, without perforation or abscess without bleeding (principal)
CPT/HCPCS: 99213

== ENCOUNTER → 2025-06-29 09:46 | Outpatient (BNVA) | payer OTHER, SELFPAY | PROVIDERS: PCP Internal Medicine; Visit Provider Internal Medicine Gastroenterology | DX: K57.92 Diverticulitis of intestine, part unspecified, without perforation or abscess without bleeding (principal) | CPT/HCPCS: 99212 ==